=== PATIENT | male | born 1950 | race Caucasian/White ===

== ENCOUNTER 2018-11-23 14:39 | Outpatient (CLI) | payer BC, MEDICARE ==
[2018-11-23 15:13] LABS: Hemoglobin 12.4 g/dL (14.0-18.0); Mean Corpuscular HGB CONC 32.2 g/dL (32.0-36.0); Mean Corpuscular Hemoglobin 29.7 pg (27.0-31.0); Mean Corpuscular Volume 92.4 fL (78.0-98.0); Mean Platelet Volume 7.8 fL (7.4-10.4); Platelet Count 306 thou/uL (130-400); RBC Distribution Width 12.8 % (11.5-14.5); Red Blood Cell (RBC) Count 4.18 mill/uL (4.70-6.10); White Blood Cell (WBC) Count 7.3 thou/uL (4.8-10.8)
[2018-11-23 15:20] LABS: INR-International Normal Ratio 1.2; PTT 29.1 SEC (22.9-36.1); Prothrombin Time 15.2 SEC (12.0-14.7)
[2018-11-23 15:35] LABS: Anion Gap 11 mmol/L (10-20); BUN (Urea Nitrogen) 22 mg/dL (8.4-25.7); Calc. Creatinine Clearance 0 mL/min (70-130); Calcium 9.1 mg/dL (7.8-10.44); Carbon Dioxide 26 mmol/L (23-31); Chloride 107 mmol/L (98-107); Estimated GFR-MDRD 62; Glucose 124 mg/dL (80-115); Potassium 3.9 mmol/L (3.5-5.1); Sodium 140 mmol/L (136-145)
== END 2018-11-23 14:40 | disposition home or self-care (01) ==
LOC: LABBT 14:39
PROVIDERS: ATTEND Internal Medicine Cardiovascular Disease
DX: Z01.812 Encounter for preprocedural laboratory examination (principal); I48.91 Unspecified atrial fibrillation
CPT/HCPCS: 80048; 85027; 85610; 85730

== ENCOUNTER 2018-12-07 09:05 | Observation (INO) | payer BC, MEDICARE ==
[2018-11-23 15:00] VITALS: BMI 33.2
[2018-12-07] MEDS ORDERED: Heparin 10,000 UNITS/1 ML VIAL ONE ×2 (10:45→10:53)
[2018-12-07] MEDS ORDERED: Isoproterenol 0.2 MG/1 ML AMP ONE (10:46)
[2018-12-07] MEDS ORDERED: Phenylephrine HCL 10 MG/ML VIAL ONE (10:53)
[2018-12-07] MEDS ORDERED: Fentanyl 100 MCG/2 ML VIAL ONE (10:54)
[2018-12-07] MEDS ORDERED: PROPOFOL 200 MG/20 ML VIAL ONE (16:10)
[2018-12-07] MEDS ORDERED: Rocuronium Bromide 10 MG/ML (10ML VIAL) ONE (16:10)
[2018-12-07] MEDS ORDERED: PHENYLEPHRINE-NS 100 MCG/ML 10 ML SYRINGE ONE (16:10)
[2018-12-07] MEDS ORDERED: Glycopyrrolate 0.2 MG/ML 5 ML SYRINGE ONE (16:10)
[2018-12-07] MEDS ORDERED: Ondansetron PF 4 MG/2 ML Vial ONE (16:10)
--- NOTE | 2018-12-07 20:30 | OP ---
DATE OF PROCEDURE: 12/07/2018 PROCEDURES PERFORMED: Comprehensive electrophysiology testing with 3-dimensional mapping and ablation of atrial fibrillation and typical and atypical flutter. CLINICAL INDICATION: Previous persistent atrial fibrillation status post ablation and Amulet placement. ASA CLASSIFICATION: III. ANESTHESIA: Total IV anesthesia per Anesthesiology. ADDITIONAL CARDIAC MEDICATIONS: Isoproterenol 10 mcg/minute infusion for 5 minutes. ACUTE COMPLICATIONS: None TOTAL HEPARIN GIVEN: 19,000 units. TOTAL PROTAMINE GIVEN: 40 mg. METHODS: After informed consent was obtained, the patient was taken to the EP lab in a fasting state. Both groins were prepped and draped. Using ultrasound guidance, the femoral veins were accessed, and an 11-Barbadian and an 8-Barbadian sheaths were placed in the left groin, two 8-Barbadian sheaths were placed in the right groin. All 8-Barbadian sheaths were replaced by long sheaths for catheter stability. A 10-Barbadian echo probe was placed in the left groin and advanced to the right atrium and the right ventricle for imaging. A circular and ablation catheter was placed in the right groin and advanced toward the right atrium. A 3D map was obtained at the right atrium and the coronary sinus. A 20-pole catheter was placed in left groin and advanced toward the coronary sinus, the proximal end was in the cy terminalis. The patient was then anticoagulated. Transseptal catheterization was performed on 2 occasions. A 3D map was obtained in the left atrium. A temperature probe was placed in the esophagus for monitoring of temperature. This was co-located with a sensor catheter. The patient had evidence of reconnection of the left inferior pulmonary vein, which was easily re-isolated. There was isolation of the appendage, which was completely closed per Ammicaelat previously. Upon re-isolation of the left inferior vein, the patient was in A-flutter, which mapped to the right-sided cavotricuspid isthmus. This was ablated, terminating the arrhythmia. On isoproterenol, the patient had an atrial tachycardia arising from the SVC, which was also isolated. After the final ablation, there was no further inducible arrhythmias. RESULTS: 1. Baseline intervals: HV interval 59 milliseconds. 2. Atrial function: The patient was in a clockwise atrial flutter, which was ablated to the posterior right atrium. The left inferior pulmonary vein was also re-isolated as described in the method section. On isoproterenol, the patient had an atrial tachycardia arising from the superior vena cava, which was isolated. 3. Ablation details. A total of 7 minutes and 50 seconds of RF were delivered using a Biosense Kothari open irrigated ablation catheter. IMPRESSION: Successful re-isolation of left inferior pulmonary vein with ablation of cavotricuspid isthmus flutter and isolation of the SVC. RECOMMENDATIONS: Oral anticoagulation for 4 weeks (the patient has an intact Amulet device). Job ID: [id number]
[2018-12-07] MEDS: Atenolol 25 MG TAB PO SCH (21:01)
[2018-12-08] MEDS ORDERED: Levothyroxine Sodium 100 MCG TAB PO SCH (06:00)
--- NOTE | 2018-12-08 07:26 | EKG ---
Test Reason : POST ABLATIONM Blood Pressure : / mmHG Vent. Rate : 058 BPM Atrial Rate : 058 BPM P-R Int : 282 ms QRS Dur : 146 ms QT Int : 494 ms P-R-T Axes : 074 -48 082 degrees QTc Int : 484 ms Sinus bradycardia with 1st degree A-V block Left axis deviation Right bundle branch block (RBBB and left anterior fascicular block) T wave abnormality, consider lateral ischemia Abnormal ECG No previous ECGs available Confirmed by SHAAN PIERRE ([id number]) on 12/08/2018 7:26:33 AM Referred By: REMI Confirmed By:SHAAN PIERRE
[2018-12-08] MEDS: Atenolol 25 MG TAB PO SCH (07:34)
[2018-12-08] MEDS ORDERED: Aspirin 81 mg Enteric Coated Tablet PO SCH (09:00)
[2018-12-08] MEDS ORDERED: Amlodipine 5 MG TAB PO SCH (09:00)
[2018-12-08 11:51] VITALS: BP 128/70; TEMP 97.5
--- NOTE | 2018-12-08 12:54 | DIS ---
DATE OF ADMISSION: 12/07/2018 DATE OF DISCHARGE: 12/08/2018 DIAGNOSES: Atrial flutter, atrial fibrillation. PROCEDURES PERFORMED: Comprehensive electrophysiology testing with 3D mapping and ablation of atrial fibrillation in addition to typical and atypical flutter. COMPLICATIONS: None. TOTAL ABLATION TIME: 7 minutes 50 seconds. SUBJECTIVE: Mr. Desai is a pleasant 68-year-old gentleman, who underwent his initial ablation for atrial fibrillation in 2016. Since that time, he has had occasional episodes with atrial flutter, which had been increasingly frequent and moderately symptomatic with. He has inclusion of Amulet and therefore had not been on anticoagulation prior to ablation. He underwent EP study with ablation with Dr. Recinos on 12/07/2018. During this ablation, he required re-isolation of the left inferior pulmonary vein in addition to a cavotricuspid isthmus flutter ablation and isolation of the SVC. Total ablation time was 7 minutes 50 seconds. The patient has tolerated and has been doing well in his recovery and there were no complications. REVIEW OF SYSTEMS: An 8-point review of systems was conducted and is negative. The patient denies heart racing, palpitations, chest pain, pressure, syncope, near syncope, stroke, stroke-like symptoms, bleeding from the groin site, shortness of breath, orthopnea, nausea, vomiting, diarrhea, burning, or difficulty urinating. He expresses he is eager to go home. OBJECTIVE: VITAL SIGNS: Temperature 97.5, pulse 63, blood pressure 128/70, respirations 20, oxygen is 94% on room air. GENERAL: The patient is alert and oriented. Speech is clear. Affect is appropriate. NEUROLOGIC: Grossly intact and nonfocal. NECK: Supple without jugular venous distention. HEART: Heart rate is regularly regular, but with occasional PACs. PMI is nondisplaced. LUNGS: Clear to auscultation bilaterally. ABDOMEN: Soft and nontender. Hepatojugular reflux is negative. EXTREMITIES: Warm and dry to touch without clubbing, cyanosis, or edema. Bilateral groin sites are stable without signs of bleeding, hematoma, or complications. DIAGNOSTIC DATA: EKG and telemetry suggest sinus rhythm with a moderate amount of premature atrial complexes. DISCHARGE INSTRUCTIONS: No lifting more than 7 pounds for 1 week. No soaking baths for 1 week. No driving for 2 days. Follow up with [facility] in 6 weeks. See postablation [facility] discharge instruction packet. Take medications as prescribed. He will require 12 weeks of anticoagulation post ablation and then may resume baby aspirin alone as he has Amulet in place. DISCHARGE MEDICATIONS: Resuming home medications of, 1. Levothyroxine sodium 200 mcg p.o. daily. 2. Atenolol 25 mg p.o. b.i.d. 3. Aspirin 81 mg p.o. daily. 4. Amlodipine 5 mg p.o. daily. New prescriptions were sent in for, 1. Carafate 1 g p.o. q.i.d. x2 weeks. 2. Protonix 40 mg p.o. daily x1 month. 3. Apixaban 5 mg p.o. b.i.d. x1 month. Job ID: [id number] [facility]
--- NOTE | 2018-12-10 14:07 | EKG ---
Test Reason : Blood Pressure : / mmHG Vent. Rate : 061 BPM Atrial Rate : 096 BPM P-R Int : 248 ms QRS Dur : 142 ms QT Int : 470 ms P-R-T Axes : 067 -50 057 degrees QTc Int : 473 ms Sinus rhythm with 1st degree A-V block with Supraventricular trigeminy Left axis deviation Right bundle branch block T wave abnormality, consider lateral ischemia Abnormal ECG When compared with ECG of 07-DEC-2018 14:43, No significant change was found Confirmed by SHAAN PIERRE ([id number]) on 12/10/2018 2:06:43 PM Referred By: REMI Confirmed By:SHAAN PIERRE
== END 2018-12-08 13:41 | disposition home or self-care (01) ==
LOC: CCL 09:05 → 2SW 14:34
PROVIDERS: ADMIT Internal Medicine Cardiovascular Disease; ATTEND Internal Medicine Cardiovascular Disease
PROC: 02583ZZ Destruction of Conduction Mechanism, Percutaneous Approach (ICD-10-PCS; principal; 2018-12-07)
PROC: 02K83ZZ Map Conduction Mechanism, Percutaneous Approach (ICD-10-PCS; 2018-12-07)
PROC: 4A023FZ Measurement of Cardiac Rhythm, Percutaneous Approach (ICD-10-PCS; 2018-12-07)
PROC: 4A0234Z Measurement of Cardiac Electrical Activity, Percutaneous Approach (ICD-10-PCS; 2018-12-07)
DX: I48.1 Persistent atrial fibrillation (principal); I48.3 Typical atrial flutter; I48.4 Atypical atrial flutter; E89.0 Postprocedural hypothyroidism; I10 Essential (primary) hypertension; I48.91 Unspecified atrial fibrillation; G47.30 Sleep apnea, unspecified; E78.5 Hyperlipidemia, unspecified; Z87.891 Personal history of nicotine dependence; Z99.89 Dependence on other enabling machines and devices; Z79.82 Long term (current) use of aspirin; Z79.899 Other long term (current) drug therapy
CPT/HCPCS: 76942; 93005; 93010; 93613; 93623; 93656; 93657; 93662; C1731; C1732; C1759; C1760; C1769; G0378; J1644; J2370; J2405; J2704; J3010

== ENCOUNTER 2019-01-24 14:44 | Outpatient (CLI) | payer BC, MEDICARE ==
[2019-01-24 15:26] LABS: Hemoglobin 11.7 g/dL (14.0-18.0); Mean Corpuscular HGB CONC 32.3 g/dL (32.0-36.0); Mean Corpuscular Hemoglobin 28.7 pg (27.0-31.0); Mean Corpuscular Volume 88.7 fL (78.0-98.0); Mean Platelet Volume 7.5 fL (7.4-10.4); Platelet Count 299 thou/uL (130-400); RBC Distribution Width 12.9 % (11.5-14.5); Red Blood Cell (RBC) Count 4.07 mill/uL (4.70-6.10); White Blood Cell (WBC) Count 7.1 thou/uL (4.8-10.8)
[2019-01-24 15:33] LABS: INR-International Normal Ratio 1.1; Prothrombin Time 14.2 SEC (12.0-14.7)
[2019-01-24 15:49] LABS: Anion Gap 13 mmol/L (10-20); BUN (Urea Nitrogen) 23 mg/dL (8.4-25.7); Calc. Creatinine Clearance 0 mL/min (70-130); Calcium 9.2 mg/dL (7.8-10.44); Carbon Dioxide 25 mmol/L (23-31); Chloride 107 mmol/L (98-107); Estimated GFR-MDRD 61; Glucose 108 mg/dL (80-115); Sodium 141 mmol/L (136-145)
--- NOTE | 2019-01-26 21:20 | EKG ---
Test Reason : Blood Pressure : / mmHG Vent. Rate : 067 BPM Atrial Rate : 174 BPM P-R Int : 000 ms QRS Dur : 150 ms QT Int : 444 ms P-R-T Axes : 000 -64 076 degrees QTc Int : 469 ms Undetermined rhythm Second degree AV block I, Wenkebach Right bundle branch block Left anterior fascicular block Bifascicular block Left ventricular hypertrophy with QRS widening and repolarization abnormality Abnormal ECG When compared with ECG of 08-DEC-2018 07:04, Current undetermined rhythm precludes rhythm comparison, needs review T wave inversion now evident in Anterior leads Confirmed by Areli MALONE ([id number]) on 01/26/2019 9:20:01 PM Referred By: [facility] Confirmed By:Areli MALONE
== END 2019-01-24 14:45 | disposition home or self-care (01) ==
LOC: LABBT 14:44
PROVIDERS: ATTEND Internal Medicine Cardiovascular Disease
DX: Z01.818 Encounter for other preprocedural examination (principal); I48.91 Unspecified atrial fibrillation
CPT/HCPCS: 80048; 85027; 85610; 85730; 93005; 93010

== ENCOUNTER 2019-01-26 10:51 | Day surgery (SDC) | payer BC, MEDICARE ==
[2019-01-24 14:45] VITALS: BMI 32.5
[~2019-01-26 10:51] MED LIST: Iopamidol 370 76% 50 ML VIAL FS ONE; PROPOFOL 200 MG/20 ML VIAL ONE
[2019-01-26] MEDS ORDERED: PROPOFOL 20 ML ONE (12:13)
[2019-01-26] MEDS ORDERED: Midazolam HCl 2 mg/2 ml Vial ONE (16:01)
[2019-01-26] MEDS ORDERED: Fentanyl 100 MCG/2 ML VIAL ONE (16:01)
--- NOTE | 2019-01-26 17:12 | RAD ---
XR Chest 1 View Portable HISTORY: Pacemaker insertion COMPARISON: 12/15/2016 FINDINGS: The heart size is at upper limits of normal. The lungs are well expanded without focal area s of consolidation, pneumothorax or pleural effusions. There is been interval placement of a left-sided pacer device with bipolar leads in the right atrium and the right ventricle. IMPRESSION: No radiographic evidence of acute cardiopulmonary process.
--- NOTE | 2019-01-26 20:43 | OP ---
DATE OF PROCEDURE: 01/26/2019 REASON FOR PROCEDURE: Mr. Desai is a 68-year-old man with prior history of recurrent atrial arrhythmias, most recent ablation in November, here with recurrent arrhythmia. He has Amulet device in place with adequate sealing. DESCRIPTION OF PROCEDURE: The patient received propofol by Anesthesia specialist. After adequate level of sedation achieved, a synchronized 70-joule shock promptly converted the patient back to sinus rhythm. CONCLUSION: 1. Successful cardioversion. 2. Marked sinus bradycardia on return rhythm likely will need reduction of his beta-ester therapy. Job ID: [id number]
--- NOTE | 2019-01-26 21:30 | EKG ---
Test Reason : S/P AFLUT ABLATION Blood Pressure : / mmHG Vent. Rate : 039 BPM Atrial Rate : 039 BPM P-R Int : 000 ms QRS Dur : 144 ms QT Int : 532 ms P-R-T Axes : 082 -41 022 degrees QTc Int : 428 ms Marked sinus bradycardia with 1st degree A-V block with Premature atrial complexes in a pattern of bi geminy Left axis deviation Right bundle branch block Abnormal ECG Confirmed by Areli MALONE ([id number]) on 01/26/2019 9:30:31 PM Referred By: [facility] Confirmed By:Areli MALONE
--- NOTE | 2019-01-26 21:30 | EKG ---
Test Reason : PREOP Blood Pressure : / mmHG Vent. Rate : 054 BPM Atrial Rate : 054 BPM P-R Int : 000 ms QRS Dur : 146 ms QT Int : 496 ms P-R-T Axes : 000 -46 049 degrees QTc Int : 470 ms Sinus bradycardia with Premature atrial complexes with Abberant conduction Left axis deviation Right bundle branch block T wave abnormality, consider lateral ischemia Abnormal ECG When compared with ECG of 24-JAN-2019 15:11, (Unconfirmed) Previous ECG has undetermined rhythm, needs review T wave inversion no longer evident in Anterior leads Confirmed by Areli MALONE ([id number]) on 01/26/2019 9:30:19 PM Referred By: [facility] Confirmed By:Areli MALONE
== END 2019-01-26 20:00 | disposition home or self-care (01) ==
LOC: CCL 10:51
PROVIDERS: ATTEND Internal Medicine Cardiovascular Disease
PROC: 02HL3JZ Insertion of Pacemaker Lead into Left Ventricle, Percutaneous Approach (ICD-10-PCS; principal; 2019-01-26)
PROC: 0JH606Z Insertion of Pacemaker, Dual Chamber into Chest Subcutaneous Tissue and Fascia, Open Approach (ICD-10-PCS; principal; 2019-01-26)
PROC: 5A2204Z Restoration of Cardiac Rhythm, Single (ICD-10-PCS; principal; 2019-01-26)
DX: I48.1 Persistent atrial fibrillation (principal); I49.9 Cardiac arrhythmia, unspecified; I10 Essential (primary) hypertension; E78.5 Hyperlipidemia, unspecified; E89.0 Postprocedural hypothyroidism; Z79.82 Long term (current) use of aspirin; Z79.899 Other long term (current) drug therapy
CPT/HCPCS: 33208; 36005; 71045; 75820; 92960; 93005; 93010; 99152; 99153; J0690; J2250; J2704; J3010; J3490; Q9967

== ENCOUNTER 2019-02-26 11:34 | Inpatient (IN) | payer BC, MEDICARE ==
[2019-02-26 12:06] LABS: #Basophils 0.1 thou/uL (0.0-0.2); #Eosinphils 0.3 thou/uL (0.0-0.7); #Lymphocytes 2.3 thou/uL (1.20-3.40); #Monocytes 1.1 thou/uL (0.11-0.59); #Neutrophils 3.9 thou/uL (1.40-6.50); %Basophils 0.7 % (0.0-1.0); %Eosinophils 3.6 % (0.0-10.0); %Monocytes 14.6 % (0.0-10.0); %Neutrophils 51.1 % (42.0-75.0); Hemoglobin 11.4 g/dL (14.0-18.0); Mean Corpuscular HGB CONC 31.3 g/dL (32.0-36.0); Mean Corpuscular Volume 86.2 fL (78.0-98.0); Mean Platelet Volume 7.4 fL (7.4-10.4); Platelet Count 277 thou/uL (130-400); RBC Distribution Width 13.3 % (11.5-14.5); Red Blood Cell (RBC) Count 4.21 mill/uL (4.70-6.10); White Blood Cell (WBC) Count 7.6 thou/uL (4.8-10.8)
--- NOTE | 2019-02-26 12:23 | RAD ---
2 VIEWS CHEST: Date: 02/26/19 HISTORY: Dyspnea. COMPARISON: 01/26/19. FINDINGS: Mild cardiomegaly with mild vascular congestion. Pacemaker leads are noted. No infiltrate or effusion . IMPRESSION: Mild cardiomegaly with mild vascular congestion. POS: [facility]
[2019-02-26 12:30] LABS: ALT (SGPT) 17 U/L (8-55); AST (SGOT) 20 U/L (5-34); Albumin 4.1 g/dL (3.4-4.8); Alkaline Phosphatase 110 U/L (40-150); Anion Gap 12 mmol/L (10-20); BUN (Urea Nitrogen) 16 mg/dL (8.4-25.7); CK (CPK) 95 U/L (30-200); Calc. Creatinine Clearance 0 mL/min (70-130); Calcium 9.6 mg/dL (7.8-10.44); Carbon Dioxide 29 mmol/L (23-31); Chloride 104 mmol/L (98-107); Estimated GFR-MDRD 53; Globulin 3.1 g/dL (2.4-3.5); Glucose 112 mg/dL (80-115); Potassium 4.5 mmol/L (3.5-5.1); Protein, Total 7.2 g/dL (5.8-8.1); Sodium 140 mmol/L (136-145)
[2019-02-26] MEDS ORDERED: ISOVUE-370 76%-LOCM 1 ML ONE (13:45)
--- NOTE | 2019-02-26 16:19 | CT ---
CT arteriogram chest with IV contrast and 3-D imaging HISTORY: Dyspnea. Elevated d-dimer. FINDINGS: There is good contrast opacification of the pulmonary arteries. Limited contrast has reache d the aorta at the time of imaging. The descending aorta measures up to 5.5 cm AP diameter. No luminal filling defects. Nonspecific lymph nodes throughout the mediastinum. Minimal atelectasis at t he lung bases. No evidence of pneumothorax. No pleural fluid. IMPRESSION: No CT evidence of pulmonary embolus. Aneurysmal dilatation of the ascending aorta up to 5.5 cm. No evidence of dissection.
[2019-02-26 18:03] LABS: Troponin I Less than 0.010 ng/mL (< 0.028)
[2019-02-26] MEDS ORDERED: Sodium Chloride 0.9% 1,000 ML IV SCH (18:52)
[2019-02-26 19:47] LABS: Troponin I Less than 0.010 ng/mL (< 0.028)
[2019-02-26 20:22] VITALS: BMI 34.1
[2019-02-26] MEDS ORDERED: Acetaminophen 325 MG TAB PO PRN (21:44)
[2019-02-26] MEDS ORDERED: Ondansetron ODT 4 MG TAB PO PRN (21:44)
[2019-02-26] MEDS ORDERED: Furosemide 20 MG/2 ML VIAL SLOW IVP SCH (22:00)
[2019-02-26] MEDS ORDERED: Flecainide 50 MG TAB PO SCH (22:00)
[2019-02-26] MEDS ORDERED: Atenolol 25 MG TAB PO SCH (22:00)
--- NOTE | 2019-02-27 02:51 | HP ---
PRIMARY CARE PHYSICIAN: Tristan Aranda MD TIME OF EVALUATION: 6:30 p.m. CHIEF COMPLAINT: Shortness of breath. HISTORY OF PRESENT ILLNESS: Mr. Desai is a very pleasant 68-year-old male with past medical history significant for paroxysmal atrial fibrillation, status post multiple ablations and Amulet exclusion device of his left atrial appendage , sick sinus syndrome, status post recent pacemaker implantation, January 26, 2019, hypertension, and history of intracranial hemorrhage, who presented to the hospital with complaints of a 2-day history of some intermittent shortness of breath. The patient states that his shortness of breath has come and gone. He denies any orthopnea. He denies any cough, fever, or chills. The patient reports a sensation as if "something just isn't right." He has noticed his shortness of breath both with exertion and with rest. The patient lives in [place] with his , and when they were driving to town to eat breakfast, the patient decided that he did not feel up to going to a restaurant and drove himself to the emergency department for further workup and evaluation. On arrival to the ED, the patient's blood pressure was 152/97, pulse was 70, respirations were 18 and the patient was saturating 99% on room air. His initial troponin was negative. D-dimer was elevated at 0.45, and so CTA was performed, which showed no evidence of pulmonary embolism, but did incidentally capture an ascending thoracic aneurysm measuring 5.5 cm in diameter, newly diagnosed. His EKG showed an atrial paced rhythm with a prolonged AV delay. BNP was 118 and chest x-ray showed mild vascular congestion. REVIEW OF SYSTEMS: A 12-point review of systems performed and is negative except that stated above. ALLERGIES: NO KNOWN DRUG ALLERGIES. HOME MEDICATIONS: 1. Atenolol 25 mg p.o. b.i.d. 2. Flecainide 50 mg one p.o. b.i.d. 3. Levothyroxine 200 mcg daily. 4. Amlodipine 5 mg daily. PAST MEDICAL HISTORY: Hypertension, hypothyroidism, history of hemorrhagic CVA, which presented with vision loss, no residual deficits, hypertension, paroxysmal atrial fibrillation, status post multiple ablations, sick sinus syndrome, status post pacemaker implantation. PAST SURGICAL HISTORY: Both atrial fibrillation and atrial flutter ablations in the past with Dr. Recinos and Dr. You, most recently November 2018, the patient also had an Amulet exclusion device placed by Dr. Recinos in left atrial appendage, pacemaker implant, January 26, 2019. SOCIAL HISTORY: The patient is and lives with his in [place]. He has a remote smoking history, but quit 40 years ago. He does drink socially on occasion. No illicit drug use. FAMILY HISTORY: Noncontributory. PHYSICAL EXAMINATION: VITAL SIGNS: Blood pressure 121/74, pulse 77, O2 saturation is 93% on room air, respirations 16, temperature 98.6. GENERAL: This patient is a well-appearing middle-aged male, resting comfortably in bed, in no acute distress. HEENT: Head is atraumatic and normocephalic. Mucous membranes are moist. NECK: Supple. No obvious JVD. Trachea is midline. CV: S1 and S2. Regular rate and rhythm. LUNGS: Regular respiratory rate and pattern, overall clear to auscultation bilaterally. ABDOMEN: Positive bowel sounds. Mildly obese, nontender. EXTREMITIES: +1 edema bilaterally. Both lower extremities are warm and well perfused. NEUROLOGIC: Cranial nerves 2 through 12 are grossly intact. The patient is nonfocal. LABORATORY DATA: WBC 7.6, hemoglobin 11.4, hematocrit 36.3, platelet count is 277. D-dimer was 0.45. Sodium 140, potassium 4.5, anion gap 12, BUN 16, creatinine 1.34, bilirubin 1. AST, ALT, alkaline phosphatase all within normal limits. BNP was 119. Troponin negative x2. ASSESSMENT: 1. Shortness of breath-questionable etiology, mild volume overload as evidenced by mild pulmonary vascular congestion and mildly elevated BNP versus pacemaker related, such as pacemaker syndrome. 2. Newly diagnosed ascending aortic aneurysm measuring 5.5 cm. 3. Paroxysmal atrial fibrillation/atrial flutter, status post multiple ablations and Amulet occlusion device of left atrial appendage, currently in atrially paced rhythm, CHADS-VASc equals 4. 4. Sick sinus syndrome, status post recent dual-chamber [employer]tronic pacemaker implant last month with Dr. You. 5. Hypertension. 6. Hypothyroidism. 7. Mild renal insufficiency, although not acute on chronic as creatinine is not elevated, 0.3, above baseline. PLAN: CV surgery has been consulted in light of newly diagnosed ascending aortic aneurysm of 5.5 cm, which is at the threshold for repair. Regarding his shortness of breath, I will give a small one time dose of IV Lasix and monitor the patient 's symptoms. This case was discussed in detail with Dr. Bean, who has advised for EP consult with Dr. You. The patient may benefit from optimization of his pacemaker settings. Cardiology consult as well. He has had no recent stress test or cardiology followup in quite some time. The patient reports he used to see Dr. Thrasher. GI prophylaxis and DVT prophylaxis with SCDs for now. We will obtain 2D echocardiogram. Further recommendations based on hospital course. Job ID: [id number] [facility]
[2019-02-27 05:11] LABS: Anion Gap 10 mmol/L (10-20); BUN (Urea Nitrogen) 18 mg/dL (8.4-25.7); Calc. Creatinine Clearance 95 mL/min (70-130); Carbon Dioxide 29 mmol/L (23-31); Chloride 104 mmol/L (98-107); Estimated GFR-MDRD 67; Glucose 96 mg/dL (80-115); Potassium 3.9 mmol/L (3.5-5.1); Sodium 139 mmol/L (136-145)
[2019-02-27] MEDS: Levothyroxine Sodium 100 MCG TAB PO SCH (05:50)
[2019-02-27] MEDS: Amlodipine 5 MG TAB PO SCH (09:10)
[2019-02-27] MEDS: Aspirin 81 mg Enteric Coated Tablet PO SCH (09:11)
[2019-02-27] MEDS: Famotidine 20 MG TAB PO SCH ×2 (09:11→21:20)
[2019-02-27] MEDS: Flecainide 50 MG TAB PO SCH ×2 (09:12→21:21)
[2019-02-27] MEDS: Atenolol 25 MG TAB PO SCH ×2 (09:12→21:21)
[2019-02-27] MEDS ORDERED: Lidocaine 1% (PF) 30 ML VIAL ONE (11:01)
[2019-02-27] MEDS ORDERED: Fentanyl 100 MCG/2 ML VIAL ONE (11:31)
[2019-02-27] MEDS ORDERED: Midazolam HCl 2 mg/2 ml Vial ONE (11:32)
[2019-02-27] MEDS ORDERED: Sodium Chloride 0.9% 200 ML IV PRN (12:03)
[2019-02-27] MEDS ORDERED: Acetaminophen/Codeine 30-300mg Tablet PO PRN (12:03)
[2019-02-27] MEDS ORDERED: Sodium Chloride 0.9% 1,000 ML IV SCH (12:15)
--- NOTE | 2019-02-27 13:14 | CON ---
DATE OF CONSULTATION: 02/27/2019 Cardiology Consultation REASON FOR CONSULTATION: Shortness of breath and dilated aortic root. HISTORY OF PRESENT ILLNESS: Mr. Desai is a pleasant 68-year-old white gentleman, who comes to the hospital for shortness of breath. He lives in [place] and [facility]. He was not feeling that well to the point that he decided to come into the hospital for this. For the last two days, he has been having intermittent shortness of breath. It just comes and goes, sometimes at rest. Sometimes with exertion and it just goes away on its own. He had a pacemaker placed recently on January 26 and has a history of paroxysmal atrial fibrillation in a flutter. Has had several ablations in the past. He had a cardioversion as well and had a lot of bradycardia afterwards, so eventually had a pacemaker placed. Currently, he is denying any chest pain, tightness, or pressure. No shortness of breath. On his ER evaluation, a CT per PE protocol was performed and showed no evidence of pulmonary embolus. However, he did have an ascending aortic aneurysm measuring at 5.5 cm in diameter. PAST MEDICAL HISTORY: 1. Hypertension. 2. Hypothyroidism. 3. Hemorrhagic CVA in the past. 4. Paroxysmal atrial fibrillation, status post multiple ablations. 5. Sick sinus syndrome, status post pacemaker placement. SURGICAL HISTORY: 1. Atrial fibrillation and atrial flutter ablations by Dr. Recinos and Dr. Simpson in the past. 2. Pacemaker placement January 26 [address] You. 3. Amulet Amplatzer occlusion device for the left atrial appendage placed by Dr. Recinos recently. OUTPATIENT MEDICATIONS: Include 1. Atenolol 25 mg b.i.d. 2. Flecainide 50 mg b.i.d. 3. Levothyroxine 200 mcg a day. 4. Amlodipine 5 mg a day. ALLERGIES: NO KNOWN DRUG ALLERGIES. SOCIAL HISTORY: Remote history of tobacco use, quit 40 years ago. Social alcohol use. No drug use. FAMILY HISTORY: Sister with atrial fibrillation and father of malignancy. REVIEW OF SYSTEMS: A 12-point review of systems was done and was all negative unless stated in the history of present illness. PHYSICAL EXAMINATION: VITAL SIGNS: Temperature 98.3, pulse 72, respiratory rate 16, sat 96% on room air, and blood pressure 138/80. GENERAL: Awake, alert, and oriented x3. No distress. HEENT: Normocephalic atraumatic. NECK: Supple. LUNGS: Clear. CARDIOVASCULAR: S1, S2. No S3 or S4. No murmurs. No rubs. ABDOMEN: Soft. Positive bowel sounds. EXTREMITIES: No edema. SKIN: Warm and dry. LABORATORY DATA: Laboratory work was reviewed. Hemoglobin 11.4, hematocrit 36, platelet count 277. Coags were D-dimer was a little bit high. Chemistry was unremarkable except for a creatinine of 1.34, but down to 1.1. Troponin is negative x3. BNP is 118. Hemoglobin trend has been similar to this. The last hemoglobin was 11.7, now it is 12. EKG was reviewed. Pacemaker interrogation was reviewed. He has had several episodes of atrial fibrillation and some episodes of what appears to be atrial flutter with 2:[address] of the chest was reviewed. ASSESSMENT AND PLAN: 1. Paroxysmal atrial fibrillation. 2. Shortness of breath, episodic, likely related to runs of atrial flutter. 3. Ascending aortic aneurysm measuring 5.5 cm. PLAN: 1. As far as the aneurysm is concerned, he is at the point where it is going to need to be replaced. We spoke about doing this and he agrees to proceed with first step in this process would be doing a heart catheterization to evaluate for coronary artery disease. He agrees to proceed on this as well. We spoke about the risks and benefits of the procedure. Risks included, but not limited to stroke, NH, , bleeding, need for blood transfusion, limb loss, organ loss. The patient understands, verbalized understanding of this, and agrees to proceed. 2. We will do heart catheterization to see if there is anything other than just a root replacement needed. He will have to go to [place] for this. 3. Further recommendations per results of coronary angiogram. Echocardiogram pending. Job ID: [id number]
--- NOTE | 2019-02-27 17:17 | PDOC.PN ---
- Subjective Encounter Start Date: 02/27/19 (f/u aneurysm) Encounter Start Time: 17:14 Subjective: Pt without complaints. Denies any shortness of breath, n/v/abd pain -: denies any other concerns. - Objective Resuscitation Status - Order Detail: 02/26/19 21:44 Resuscitation Status Routine Co-Sign Provider: Resuscitation Status: FULL: Full Resuscitation Vital Signs & Weight: Vital Signs (12 hours) Temp Pulse Resp BP BP Pulse Ox 02/27/19 15:32 97.8 F 70 18 117/69 94 L 02/27/19 12:20 71 18 134/80 94 L 02/27/19 09:12 72 02/27/19 09:10 72 02/27/19 08:00 98.3 F 72 16 138/80 96 Weight Weight 227 lb 8 oz I&O: 02/26/19 02/27/19 02/28/19 06:59 06:59 06:59 Intake Total 750 300 Output Total 1650 675 Balance -900 -375 Result Diagrams: 02/26/19 11:57 02/27/19 04:12 EKG Reviewed by me: Yes (tele - paced 70-80's) Phys Exam - Physical Examination Constitutional: NAD Respiratory: no wheezing, no rales, no rhonchi, clear to auscultation bilateral Cardiovascular: RRR, no significant murmur Gastrointestinal: soft, non-tender, no distention, positive bowel sounds Musculoskeletal: no edema Neurological: non-focal, moves all 4 limbs Psychiatric: normal affect Dx/Plan (1) Thoracic aortic aneurysm Code(s): I71.2 - THORACIC AORTIC ANEURYSM, WITHOUT RUPTURE Status: Acute (2) Anemia Code(s): D64.9 - ANEMIA, UNSPECIFIED Status: Chronic Qualifiers: Anemia type: unspecified type Qualified Code(s): D64.9 - Anemia, unspecified (3) Atrial fibrillation and flutter Code(s): I48.91 - UNSPECIFIED ATRIAL FIBRILLATION; I48.92 - UNSPECIFIED ATRIAL FLUTTER Status: Chronic - Plan * Pt s/p cath today - d/w Dr. Trejo and CT angiogram of the aorta is needed tomorrow for further characterization. Will hydrate with IVF overnight -use lasix prn for volume overload. Pt has received a contrast study both yesterday and today, and needs an additional one tomorrow. * * continue IVF as ordered * f/u with Dr. You as directed for a fib * continue home meds as ordered. * * dvt prophy - ambulatory * gi prophy - not indicated * code status - full * * reviewed plan of care with patient, no questions or further needs at end of eval. Anticipate discharge when cleared by Dr. Trejo/Cardiology
[2019-02-27] MEDS: Sodium Chloride 0.9% 1,000 ML IV SCH ×2 (17:46→23:13)
--- NOTE | 2019-02-27 22:20 | CON ---
DATE OF CONSULTATION: 02/27/2019 HISTORY OF PRESENT ILLNESS: I am seeing Mr. 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 His problems are; 1. Continuous fatigue and tiredness. 2. Recurrent atrial fibrillation/flutter. a. History of cardioversion in January 2019 with subsequent bradyarrhythmia, prompting a dual-chamber pacemaker implantation. b. Prior history of atrial fibrillation ablation most recent on December 07, 2018, this recurrence is despite. c. Flecainide use for suppression. 3. Status post left appendage closure with OKSANA from 12/12/2018 shows complete occlusion of an appendage with 60% mild LVEF, mild to moderate MR, and moderate TR. 4. History of hypertension. 5. Left heart catheterization demonstrates normal LVEF 70%, sjwj-cm-neberpst coronary artery disease on medical management and ascending aortic root aneurysm is seen. ALLERGIES: NONE NOTED. MEDICATIONS: At home included; 1. Amlodipine. 2. Levothyroxine. 3. Aspirin. 4. Flecainide 50 mg twice a day. SUBJECTIVE: Mr. Desai is here for progressive dyspnea. He has no fever, chills, or cough, and denies orthopnea at this time. He was noticing some shortness of breath with exertion and with rest. In the ER, he was evaluated. CTA was negative for pulmonary embolism. Ascending aortic aneurysm was noted at 5.5 cm. Pacemaker function is adequate as per interrogation with atrial pacing with prolonged AV delays noted. BNP was low at 118, but mild vascular congestion was seen. He was diuresed since and breathing better. He has no chest pain. No fever, chills, or cough. No stroke-like symptoms or neurological deficits. REVIEW OF SYSTEMS: Rest of 12-point review of system otherwise unremarkable. PAST MEDICAL HISTORY: As above. SOCIAL HISTORY: The patient denies smoking, EtOH, or drug abuse. FAMILY HISTORY: Noncontributory. PHYSICAL EXAMINATION: VITAL SIGNS: Blood pressure is 134/80, heart rate is 71, respiratory rate is 18, and temperature is 98.3 degrees Fahrenheit. GENERAL: Alert and oriented man, in no apparent distress. NECK: Supple. Jugular veins not distended. CHEST: Coarse without crackles. HEART: Sounds are regular to rate and rhythm. No murmur or gallop. Epicardial pacemaker site is healing adequately. ABDOMEN: Benign. Bowel sounds positive. EXTREMITIES: Lower extremities are without edema, clubbing, or cyanosis. Pulses are adequate. NEUROLOGIC: The patient is nonfocal. MUSCULOSKELETAL: Without joint swelling or deformity. SKIN: Without rash. DATABASE: EKG was reviewed revealing sinus rhythm with atrial pacing, prolonged AV conduction, but [place] QRS is seen with trifascicular block present. Pacemaker interrogation was reviewed revealing an adequate functioning dual-chamber Medtronic pacemaker with big enough life battery, adequate lead parameters are seen. Atrial arrhythmia episodes are noted. No fibrillation recently, but then has slow atrial flutter around 400 milliseconds is noted on February 19, although less than 1 minute in duration, self terminating. Atrial fibrillation episodes are reducing in frequency recently. ASSESSMENT AND PLAN: Mr. Desai is a pleasant 68-year-old man with prior history of recurrent atrial arrhythmias after redo ablation in November 2018. He also has adequately occluded left atrial appendage with Amulet device and recently has been cardioverted and has significant trifascicular block and bradycardia. He had a dual-chamber pacemaker implanted, which is functioning adequately and currently, he is in sinus rhythm on continued low-dose flecainide dose. His dyspnea possibly due to some mild fluid overload. Echocardiogram and cholangiogram does not account for any major abnormalities on that and he was incidentally found to have significant aortic aneurysm. Dr. Trejo is contemplating surgical repair. At this point, I find his arrhythmia is stable. His pacemaker is functioning adequately. Minor change in the programming will be made to allow for detection of any slower atrial arrhythmias and also we will turn atrial ATP therapies on hence the atrial lead is functioning good. I suspect some efficacy from atrial pacing therapies. For now, we will continue conservative management, otherwise, continue oral anticoagulation as well. Pacemaker interrogation and changes will be performed today. Thank you again for allowing me to participate in the care of this patient. Job ID: [id number]
[2019-02-28 04:57] LABS: Anion Gap 12 mmol/L (10-20); BUN (Urea Nitrogen) 14 mg/dL (8.4-25.7); Calc. Creatinine Clearance 109 mL/min (70-130); Calcium 8.9 mg/dL (7.8-10.44); Carbon Dioxide 25 mmol/L (23-31); Chloride 105 mmol/L (98-107); Estimated GFR-MDRD 78; Glucose 96 mg/dL (80-115); Potassium 4.2 mmol/L (3.5-5.1); Sodium 138 mmol/L (136-145)
[2019-02-28] MEDS: Levothyroxine Sodium 100 MCG TAB PO SCH (06:34)
[2019-02-28] MEDS: Famotidine 20 MG TAB PO SCH (09:15)
[2019-02-28] MEDS: Atenolol 25 MG TAB PO SCH (09:15)
[2019-02-28] MEDS: Aspirin 81 mg Enteric Coated Tablet PO SCH (09:15)
[2019-02-28] MEDS: Amlodipine 5 MG TAB PO SCH (09:15)
[2019-02-28] MEDS: Flecainide 50 MG TAB PO SCH (09:15)
[2019-02-28] MEDS: Sodium Chloride 0.9% 1,000 ML IV SCH (09:16)
--- NOTE | 2019-02-28 14:12 | CT ---
CT ANGIOGRAM CHEST WITH CONTRAST CTA ABDOMEN WITH CONTRAST 02/28/19 HISTORY: Evaluate aortic aneurysm. COMPARISON: CTA two days prior. TECHNIQUE: CT angiogram of the chest and abdomen performed after intravenous administration of contrast. 3D rend ering is provided. FINDINGS: The aortic size is as follows: Aortic valve: 2.9 cm. Sinuses of Valsalva: 4.4 cm. Sinotubular junction: 3.6 cm. Mid ascending thoracic aorta: 5 cm. Transverse aorta: 4 cm. Proximal descending thoracic aorta: 3.1 cm. Mid descending thoracic aorta: 2.9 cm. Diaphragmatic hiatus: 2.6 cm. The abdominal aorta is nonaneurysmal. Heart size is enlarged. No pericardial effusion. The pulmonary trunk is mildly enlarged measuring 3.5 cm. Lungs are clear. No pneumothorax. No effusions. Small fat containing supraumbilical ventral hernia. T he liver and spleen are unremarkable as well as the pancreas. No hydronephrosis. Adrenal glands unremarkable. The superior mesenteric artery and celiac trunk are patent. No thoracic spine compression fracture. No displaced rib fracture. No acute osseous abnormality. IMPRESSION: 1. Aneurysmal dilatation of the ascending aorta as described. No evidence for dissection. 2. Cardiomegaly. 3. Dilatation of pulmonary trunk suggesting pulmonary arterial hypertension. POS: HOME
[2019-02-28 15:50] VITALS: BP 126/78; TEMP 98.8
--- NOTE | 2019-02-28 16:10 | PRG ---
DATE OF SERVICE: 02/28/2019 SUBJECTIVE: Mr. Desai seems to be doing fair. No further arrhythmia episodes are seen. No palpitations, dizziness, or loss of consciousness. His dyspnea is improved with diuresis. He has recovered well from the heart catheterization. OBJECTIVE DATA: VITAL SIGNS: Blood pressure 122/78, heart rate 72, respiratory rate 16, temperature 98.8 degrees Fahrenheit. GENERAL: Alert and oriented man, in no apparent distress. NECK: Supple. Jugular veins not distended. CHEST: Coarse with crackles. HEART: Sounds are regular to rate and rhythm. No murmur or gallop. ABDOMEN: Benign. Bowel sounds positive. EXTREMITIES: Lower extremities without edema, clubbing, or cyanosis. Left epicardial pacemaker insertion site is well healed. DATABASE: Telemetry strips reveal sinus rhythm. [place] AV conduction with long first-degree AV block. ASSESSMENT AND PLAN: Mr. Desai is a pleasant 68-year-old man with prior history of congestive heart failure, recurrent atrial arrhythmias after repeat ablation, most recently December 07, 2018 with recurrence, for which he was started on flecainide and cardioverted due to marked bradycardia and trifascicular block. He did undergo a dual-chamber pacemaker implantation, which seems to be functioning adequately currently. He is continued on flecainide with low-dose with no recurrence of atrial arrhythmias so far. Incidentally, thoracic aneurysm was found and consideration for surgical repair is made. Dr. Trejo is managing this. At this point, again, I think his pacemaker stable. No new changes are made. I will sign out and planned to see him back in the office in about three months. Job ID: [id number]
--- NOTE | 2019-02-28 19:22 | PDOC.CTH ---
Cardiology Progress Note - Subjective No new issues. Doing well. - Objective Vital Signs Temp Pulse Resp BP Pulse Ox 02/28/19 15:35 98.8 F 72 16 126/78 94 L 02/28/19 12:18 97.7 F 76 14 144/80 H 97 02/28/19 07:44 97.7 F 72 18 141/79 H 95 Weight 227 lb 1.6 oz 02/27/19 02/28/19 03/01/19 06:59 06:59 06:59 Intake Total 750 2586 1530 Output Total 1650 1650 975 Balance -900 936 555 - Physical Examination General/Neuro: alert & oriented x3, NAD Neck: no JVD present Lungs: CTA, unlabored respirations Heart: RRR Abdomen: NT/ND Extremities: + edema B (no edema) - Telemetry Telemetry Rhythm: NSR - Labs Result Diagrams: 02/26/19 11:57 02/28/19 04:12 Troponin/CKMB Troponin I Less than 0.010 ng/mL (< 0.028) 02/26/19 18:57 - Assessment/Plan 1. Ascending aortic aneurysm 5.[address] angio. 2. Paroxysmal afib 3. SSS, s/p PPM placement in the past. 4. HTN 5. Moderate LCx disease. PLAN: - We had a long discussion about his aneurysm. First CT chest was without arterial contrast and it measured 5.5, I repeated CT but now CT angio and it measured 5.0 cm which goes with my measurement in [facility]. I would believe the CT angio more as it is a very good study, contrast is fully in the arterial side and my measurements would agree with 5.0 at it's largest diameter. Will wait for now and re image in 6 months to assess progression of size. - He may be discharged and will follow up in 4-6 weeks and will have him keep a log of his BP's and decided on up titration of his medications.
--- NOTE | 2019-03-01 03:44 | DIS ---
DATE OF ADMISSION: 02/26/2019 DATE OF DISCHARGE: 02/28/2019 CONSULTANTS: 1. Electrophysiology/Cardiology, Dr. You. 2. Cardiology, Dr. Trejo. MEDICATIONS: Reconciled at discharge and unchanged compared to admission. 1. Flecainide 50 mg p.o. b.i.d. 2. Amlodipine 5 mg daily. 3. Aspirin 81 mg daily. 4. Atenolol 25 mg b.i.d. 5. Levothyroxine 200 mcg daily. FINAL DIAGNOSES: 1. Acute kidney injury, mild and resolved. 2. Ascending aortic aneurysm at 5.0 cm. 3. Paroxysmal atrial fibrillation and flutter. 4. Shortness of breath, resolved. SECONDARY DIAGNOSES: 1. Sick sinus syndrome, status post pacemaker. 2. Hypertension. 3. Hypothyroidism. 4. Anemia, mild. HISTORY OF PRESENT ILLNESS: Mr. Desai is a 68-year-old male with history of atrial fibrillation, and Amulet device of the left atrial appendage, hypertension, hypothyroidism, hemorrhagic CVA, sick sinus syndrome status post pacemaker implantation, who presented to the emergency room with a complaint of shortness of breath. The patient only describes it felt like "something was not right," he was found to be slightly hypertensive with possible heart failure and hospitalist called for admission. HOSPITAL COURSE: The patient was monitored on telemetry and maintained a paced rhythm. The shortness of breath has completely resolved. He was noted to have a thoracic aortic aneurysm measuring 5.5 cm, was evaluated by Dr. Trejo and underwent catheterization for further characterization. The catheterization was normal, echocardiogram shows a normal ejection fraction, with a moderately dilated left atrium and mild AR, moderate TR, mild [place] with a dilated aortic root at 4.5 cm. Due to this, the patient underwent a CT dissection protocol which showed mid ascending thoracic aorta was 5 cm. In discussion with Dr. Trejo today, he will follow up in the outpatient clinic for monitoring in approximately 4-6 weeks. No changes to his medications. The patient was evaluated by Dr. You due to atrial fibrillation and concern that his presenting symptoms were associated with this. Dr. You interrogated the pacemaker, made some adjustments to it, and he can follow up in the outpatient setting. The patient is overall feeling well, status post three contrast studies, one each day including today and the past 2 days. He has tolerated this well, has been hydrated with IV fluids, and his renal function is normal. The patient overall doing well, does meet criteria for discharge to home. PHYSICAL EXAMINATION: VITAL SIGNS: On day of discharge, blood pressure 126/78, temp 98.8, pulse 72, respirations 16, saturations 94% on room air. GENERAL: Awake, alert, responsive, in no apparent distress. Able to speak in full sentences. LUNGS: Clear to auscultation bilateral. No audible wheezing, rhonchi, or rales. HEART: Normal S1, S2. Regular rate. No significant murmurs. ABDOMEN: Soft with present bowel sounds. Nontender, nondistended. FUENTES FINDINGS AND TEST RESULTS: CBC; 7.6, 11.4, 36.3, 277. D-dimer 0.45. Chemistry; 138, 4.2, 105, 25, 14, 0.96, 96. Troponin x3 negative. BNP 118. CT dissection protocol shows a 5-cm mid ascending thoracic aorta, cardiomegaly, dilatation of the pulmonary trunk suggesting pulmonary arterial hypertension. Echocardiogram shows an EF of 60% to 65%, moderately dilated left atrium, mild MR, mild AR, moderate TR and mild [place], and dilated aortic root at 4.[address] angiogram on February 26 shows negative for PE, aneurysmal dilatation of the ascending aorta up to 5.5 cm and no evidence of dissection. Chest x-ray on February 26, mild cardiomegaly with mild vascular congestion. DIET: Heart healthy. ACTIVITY: No limitations. FOLLOWUP: With Dr. Trejo in 4-6 weeks for monitoring of heart and aneurysm. Following up with Dr. Salguero - the primary care physician within a week to review this hospitalization and any other health needs. DISCHARGE DISPOSITION: Home. CODE STATUS: Full. Reviewed with patient this hospitalization, the importance of followup and the seek care precautions. No questions or further needs at the end of evaluation. Total time coordinating discharge is less than 30 minutes. Job ID: [id number] MTDD
== END 2019-02-28 18:15 | disposition home or self-care (01) | DRG 287 ==
LOC: ERS 11:34 → OBSVTOIN 18:43 → 2SW 18:43
PROVIDERS: ADMIT Internal Medicine; ATTEND Internal Medicine
PROC: 4A023N7 Measurement of Cardiac Sampling and Pressure, Left Heart, Percutaneous Approach (ICD-10-PCS; principal; 2019-02-27)
PROC: B2151ZZ Fluoroscopy of Left Heart using Low Osmolar Contrast (ICD-10-PCS; 2019-02-27)
PROC: B2111ZZ Fluoroscopy of Multiple Coronary Arteries using Low Osmolar Contrast (ICD-10-PCS; 2019-02-27)
PROC: B3101ZZ Fluoroscopy of Thoracic Aorta using Low Osmolar Contrast (ICD-10-PCS; 2019-02-27)
DX: I11.0 Hypertensive heart disease with heart failure (principal); I48.92 Unspecified atrial flutter; N17.9 Acute kidney failure, unspecified; I50.9 Heart failure, unspecified; D64.9 Anemia, unspecified; I71.2 Thoracic aortic aneurysm, without rupture; I48.0 Paroxysmal atrial fibrillation; I49.5 Sick sinus syndrome; Z95.0 Presence of cardiac pacemaker; E03.9 Hypothyroidism, unspecified; Z86.73 Personal history of transient ischemic attack (TIA), and cerebral infarction without residual deficits; Z87.891 Personal history of nicotine dependence; Z79.82 Long term (current) use of aspirin; Z79.899 Other long term (current) drug therapy
CPT/HCPCS: 36415; 71046; 71275; 80048; 80053; 82550; 83880; 84484; 85025; 85379; 93005; 93306; 93458; 99152; 99153; C1769; J1644; J1940; J2001; J2250; J3010; Q9966

== ENCOUNTER 2019-03-07 10:51 | Emergency (ER) | payer BC, MEDICARE | END 2019-03-07 12:20 | disposition home or self-care (01) | LOC: ERS 10:51 | DX: I97.630 Postprocedural hematoma of a circulatory system organ or structure following a cardiac catheterization (principal); I49.9 Cardiac arrhythmia, unspecified; I48.91 Unspecified atrial fibrillation; I10 Essential (primary) hypertension; Z86.73 Personal history of transient ischemic attack (TIA), and cerebral infarction without residual deficits; Z87.891 Personal history of nicotine dependence; Z79.82 Long term (current) use of aspirin; Z79.899 Other long term (current) drug therapy | CPT/HCPCS: 99283 ==

== ENCOUNTER 2019-06-04 18:12 | Observation (INO) | payer BC, MEDICARE ==
[2019-06-04 19:07] LABS: Hemoglobin 11.4 g/dL (14.0-18.0); Mean Corpuscular Hemoglobin 27.2 pg (27.0-31.0); Mean Corpuscular Volume 82.4 fL (78.0-98.0); Mean Platelet Volume 7.7 fL (7.4-10.4); Platelet Count 321 thou/uL (130-400); Red Blood Cell (RBC) Count 4.21 mill/uL (4.70-6.10); White Blood Cell (WBC) Count 7.8 thou/uL (4.8-10.8)
[2019-06-04 19:23] LABS: Anisocytosis SLIGHT = 6-15 cells (100X) (0-5/hpf); Band 1 % (5-11); Eosinophils 4 % (0-10); Lymphocytes 21 % (21-51); MDiff Complete? YES; Monocytes 15 % (0-10); Neutrophil 57 % (42-75); Ovalocytes SLIGHT = 2-5 cells (100X) (0-1/hpf); Platelet Morphology Comment Appears Adequate; Polychromasia SLIGHT = 2-3 cells (100X) (0-2/hpf); Reactive Lymphocytes 2 % (0-10)
[2019-06-04 19:26] LABS: ALT (SGPT) 16 U/L (8-55); AST (SGOT) 18 U/L (5-34); Albumin 4.2 g/dL (3.4-4.8); Alkaline Phosphatase 81 U/L (40-110); Anion Gap 12 mmol/L (10-20); BUN (Urea Nitrogen) 27 mg/dL (8.4-25.7); Bilirubin, Total 0.7 mg/dL (0.2-1.2); CK (CPK) 108 U/L (30-200); Calc. Creatinine Clearance 0 mL/min (70-130); Calcium 9.4 mg/dL (7.8-10.44); Carbon Dioxide 28 mmol/L (23-31); Chloride 102 mmol/L (98-107); Estimated GFR-MDRD 50; Globulin 3.4 g/dL (2.4-3.5); Glucose 88 mg/dL (80-115); Potassium 3.9 mmol/L (3.5-5.1); Protein, Total 7.6 g/dL (5.8-8.1); Sodium 138 mmol/L (136-145)
--- NOTE | 2019-06-04 20:04 | RAD ---
AP CHEST: HISTORY: Cough. Shortness of breath. Dyspnea. COMPARISON: 01/26/2019 FINDINGS: Mild cardiomegaly with transvenous pacemaker leads. Mild vascular engorgement. No infiltrate or signi ficant effusion. No significant change from the exam of 01/26/2019. POS: AGW
[2019-06-04] MEDS ORDERED: Furosemide 40 MG/4 ML VIAL ONE (20:22)
[2019-06-05] MEDS ORDERED: Ondansetron PF 4 MG/2 ML Vial IVP PRN (06:04)
[2019-06-05] MEDS ORDERED: Acetaminophen 325 MG TAB PO PRN (06:04)
[2019-06-05] MEDS ORDERED: Acetaminophen 650 MG Suppository PR PRN (06:04)
--- NOTE | 2019-06-05 06:10 | PDOC.HHP ---
Hospitalist HPI - History of Present Illness Shortness of breath History of Present Illness: Mr. Desai is a pleasant 69M presenting with progressively worsening shortness of breath x 1 week. He states yesterday he went to the store and after walking from his car to the door he had to sit and rest due to heavy breathing. He states this is very unusual for him, however he has been here with similar symptoms in February 2019. He denies having any chest pain or palpitations. No lightheadedness of dizziness. Has otherwise felt well in himself. He does report noting increased abdominal girth and fluid retention in his legs with visible indents from his socks on his legs. In the last week he reports gaining 8 lbs. He has a history of sick-sinus syndrome which developed following cardioversion for afib. He therefore had a pacemaker placed. He is known to Dr. Trejo. ED Course: In the ED the patient had labs done showing an slightly elevated BNP of 116.8, with a normal troponin. CK was normal and BMP was notable for BUN 27, creatinine of 1.42, GFR of 50, which appeared to be worse from baseline. WCC was normal at 7,8, hgb 11.4, Platelets 321. CXR done showed mild cardiomegaly with transvenous pacemaker leads. Mild vascular engorgement. No infiltrate or significant effusion. Overall xray appeared unchanged compared to that done in 01/2019. He was treated with lasix 40 mg IV and has felt improvement in shortness of breath, abdo distention as well as leg swelling. Hospitalist ROS - Review of Systems Constitutional: denies: fever, chills, sweats, weakness, malaise, other Eyes: denies: pain, vision change, conjunctivae inflammation, eyelid inflammation, redness, other ENT: denies: ear pain, ear discharge, nose pain, nose discharge, nose congestion , mouth pain, mouth swelling, throat pain, throat swelling, other Respiratory: reports: shortness of breath, SOB with excertion. denies: cough, dry, hemoptysis, pleuritic pain, sputum, wheezing, other Cardiovascular: reports: edema. denies: chest pain, palpitations, orthopnea, paroxysmal noc. dyspnea, light headedness, other Gastrointestinal: reports: other (increased abdominal girth). 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 He is able to go a day without drinking and without having symptoms of withdrawal.) Drugs: reports: none Living Situation: With Family - Exam General Appearance: NAD, awake alert Eye: PERRL, anicteric sclera ENT: normocephalic atraumatic, no oropharyngeal lesions, dry oral mucosa Neck: supple, symmetric, no lymphadenopathy Heart: RRR, no murmur, no gallops, no rubs, normal peripheral pulses Respiratory: CTAB, no wheezes, no rales, no ronchi Respiratory - other findings: decreased at bilateral bases Gastrointestinal: soft, non-tender, no guarding, no rigidity, distended Extremities: no cyanosis, no clubbing, no edema Skin: no lesions, no rashes Neurological: cranial nerve grossly intact, normal sensation to touch, no weakness, no focal deficits Musculoskeletal: normal tone, normal strength, no muscle wasting Psychiatric: normal affect, normal behavior, A&O x 3 Hospitalist Results - Labs Result Diagrams: 06/04/19 18:44 06/04/19 18:44 Lab results: WBC 7.8 thou/uL (4.8-10.8) 06/04/19 18:44 Hgb 11.4 g/dL (14.0-18.0) L 06/04/19 18:44 Hct 34.7 % (42.0-52.0) L 06/04/19 18:44 MCV 82.4 fL (78.0-98.0) 06/04/19 18:44 Plt Count 321 thou/uL (130-400) 06/04/19 18:44 Band Neuts % (Manual) 1 % (5-11) L 06/04/19 18:44 Sodium 138 mmol/L (136-145) 06/04/19 18:44 Potassium 3.9 mmol/L (3.5-5.1) 06/04/19 18:44 Chloride 102 mmol/L (98-107) 06/04/19 18:44 Carbon Dioxide 28 mmol/L (23-31) 06/04/19 18:44 BUN 27 mg/dL (8.4-25.7) H 06/04/19 18:44 Creatinine 1.42 mg/dL (0.7-1.3) H 06/04/19 18:44 Glucose 88 mg/dL (80-115) 06/04/19 18:44 Calcium 9.4 mg/dL (7.8-10.44) 06/04/19 18:44 Total Bilirubin 0.7 mg/dL (0.2-1.2) 06/04/19 18:44 AST 18 U/L (5-34) 06/04/19 18:44 ALT 16 U/L (8-55) 06/04/19 18:44 Alkaline Phosphatase 81 U/L (40-110) 06/04/19 18:44 Creatine Kinase 108 U/L (30-200) 06/04/19 18:44 Troponin I Less than 0.010 ng/mL (< 0.028) 06/04/19 18:44 B-Natriuretic Peptide 116.8 pg/mL (0-100) H 06/04/19 18:44 Serum Total Protein 7.6 g/dL (5.8-8.1) 06/04/19 18:44 Albumin 4.2 g/dL (3.4-4.8) 06/04/19 18:44 - EKG Interpretation EKG: Afib with controlled ventricular response, HR 77, paced. Incomplete RBBB. - Radiology Interpretation Chest x-ray Status: report reviewed by mn Hospitalist H&P A/P - Problem (1) Shortness of breath Code(s): R06.02 - SHORTNESS OF BREATH Status: Acute (2) Hypertension Code(s): I10 - ESSENTIAL (PRIMARY) HYPERTENSION Status: Chronic (3) CAD (coronary artery disease) Code(s): I25.10 - ATHSCL HEART DISEASE OF [place] CORONARY ARTERY W/O ANG PCTRS Status: Chronic (4) A-fib Code(s): I48.91 - UNSPECIFIED ATRIAL FIBRILLATION Status: Chronic (5) ELPIDIO (acute kidney injury) Code(s): N17.9 - ACUTE KIDNEY FAILURE, UNSPECIFIED Status: Chronic (6) Hypothyroidism Code(s): E03.9 - HYPOTHYROIDISM, UNSPECIFIED Status: Chronic - Plan Plan: Hold further diuresis for now until assessed by day team, given ELPIDIO. Fluid restrictions, daily weight Echo done in 02/2019, no indication for repeat. 12-14 alcoholic beverages a week, denies withdrawal symptoms. ASE protocol. Monitor BP. Resume home meds once verified. CODE STATUS: FULL Surrogate decision maker is his , Levy Desai.
[2019-06-05] MEDS ORDERED: Famotidine/PF 20 mg/2ml Vial SLOW IVP SCH (09:00)
[2019-06-05] MEDS ORDERED: Famotidine/PF 20 mg/2ml Vial ONE (09:50)
[2019-06-05] MEDS: Atenolol 25 MG TAB PO SCH ×2 (09:57→20:29)
[2019-06-05] MEDS: Flecainide 50 MG TAB PO SCH ×2 (09:57→20:29)
[2019-06-05] MEDS: Levothyroxine Sodium 100 MCG TAB PO SCH (09:58)
[2019-06-05 13:38] VITALS: BMI 33.5
[2019-06-05] MEDS ORDERED: Furosemide 40 MG/4 ML VIAL SLOW IVP SCH (17:45)
--- NOTE | 2019-06-05 17:58 | CON ---
DATE OF CONSULTATION: 06/05/2019 REASON FOR CONSULTATION: Shortness of breath. PRIMARY NIB INSPECTOR: Gigi Trejo MD HISTORY OF PRESENT ILLNESS: Mr. Desai is a pleasant 69-year-old white gentleman, very well known to myself, who comes to the hospital for worsening shortness of breath. He has noted worsening shortness of breath for the last 1 or 2 weeks to the point where he would have to proper himself up to sleep. He would start coughing and get short winded if he was left flat on his back, so he had to sleep on his side, and even then he could not lay on his side for too long. He was admitted, given one dose of IV Lasix, and he diuresed some and already feels better. He has a history of atrial fibrillation, for which he had a [place]NA cardioversion and was placed on flecainide and atenolol and is on aspirin alone for stroke prophylaxis. He also has a history of an ascending aortic aneurysm, measuring at 5.[address] angiogram. He had mild coronary artery disease. He currently feels better. He is able to walk around without his oxygen, but he drops down to the 90s, upper 80s without it. On 2L, he is in the mid 90s. He denies any chest pain, tightness, or pressure. PAST MEDICAL HISTORY: 1. Paroxysmal atrial fibrillation. 2. CAD. 3. Hypertension. 4. Ascending aortic aneurysm. 5. Hemorrhagic CVA in the past. 6. Hypothyroidism. 7. Sick sinus syndrome status post pacemaker placement. SURGICAL HISTORY: 1. Pacemaker placement. 2. OK[place]NA cardioversion. 3. Heart catheterization. 4. Atrial fibrillation and A flutter ablation by Dr. Recinos and Dr. Simpson in the past. 5. Amplatzer occlusion device for left atrial appendage, placed by Dr. Recinos recently. OUTPATIENT MEDICATIONS: 1. Atenolol 25 mg b.i.d. 2. Flecainide 50 mg b.i.d. 3. Levothyroxine 200 mcg a day. 4. Amlodipine 5 mg a day. 5. Aspirin 81 mg a day. SOCIAL HISTORY: Quit smoking 40 years ago. Uses alcohol socially, but is actually about 18 drinks a week. No drug use. FAMILY HISTORY: Sister with AFib. Father of malignancy. REVIEW OF SYSTEMS: A 12-point review of systems was done and was all negative unless stated in the history of present illness. PHYSICAL EXAMINATION: VITAL SIGNS: Temperature 97.8, pulse 70, respiratory rate 14, saturating 95% on 2L nasal cannula, and blood pressure 133/75. GENERAL: Awake, alert, and oriented x3, in no distress. HEENT: Normocephalic and atraumatic. NECK: Supple. LUNGS: Clear. CARDIOVASCULAR: S1 and S2. No S3 or S4. There is a grade 2/6 systolic murmur at the right upper sternal border. ABDOMEN: Soft with possible ascitic wave. EXTREMITIES: 2+ edema. SKIN: Warm and dry. LABORATORY DATA: Laboratory work was reviewed. White count of 7.8, hemoglobin 11.4, hematocrit of 34, and platelet count of 321. Chemistries were unremarkable except for a BUN of 27 and creatinine of 1.4. Troponin was negative x1. BNP was 116. Albumin of 4.2. Chest x-ray, mild pulmonary engorgement, mild pulmonary edema. ASSESSMENT AND PLAN: 1. [id number] diastolic heart failure. 2. Paroxysmal atrial fibrillation status post atrial fibrillation and atrial flutter ablation. 3. History of hemorrhagic stroke status post Amplatzer occluded device of left atrial appendage. 4. Mild coronary artery disease. 5. Ascending aortic aneurysm, measured 5.0 cm in the recent CT angiogram. PLAN: 1. We will give one more dose of IV Lasix as he needs a little more diuresis. 2. We will get an abdominal ultrasound, looking for ascites. Also we would like to see what his liver contour is, even though his LFTs are normal with his alcohol use. I just want to make sure this looks okay and there is no cirrhotic look to the liver. 3. We will interrogate pacemaker to make sure he has not been in atrial fibrillation, causing him to go into heart failure. 4. Echocardiogram pending. Thank you for letting us to participate in the care of your patient. We will follow. Job ID: [id number]
--- NOTE | 2019-06-05 18:50 | ULT ---
ABDOMINAL ULTRASOUND: 06/05/19 Four quadrant ultrasound obtained. INDICATIONS: Question ascites. Four quadrant ultrasound shows no evidence of ascites. IMPRESSION: No evidence of significant ascites. POS: AGW
[2019-06-05] MEDS: Famotidine 20 MG TAB PO SCH (20:29)
[2019-06-06 08:54] LABS: Mean Corpuscular HGB CONC 32.4 g/dL (32.0-36.0); Mean Corpuscular Hemoglobin 27.1 pg (27.0-31.0); Mean Corpuscular Volume 83.7 fL (78.0-98.0); Mean Platelet Volume 7.5 fL (7.4-10.4); Platelet Count 318 thou/uL (130-400); RBC Distribution Width 14.8 % (11.5-14.5); Red Blood Cell (RBC) Count 4.45 mill/uL (4.70-6.10); White Blood Cell (WBC) Count 7.2 thou/uL (4.8-10.8)
[2019-06-06] MEDS ORDERED: FLU VACC TS2019-20(65YR UP)/PF 180 MCG/0.5 ML SYRINGE IM ONE (09:00)
[2019-06-06 09:12] LABS: Anion Gap 14 mmol/L (10-20); BUN (Urea Nitrogen) 22 mg/dL (8.4-25.7); Calc. Creatinine Clearance 73 mL/min (70-130); Calcium 9.3 mg/dL (7.8-10.44); Carbon Dioxide 28 mmol/L (23-31); Chloride 100 mmol/L (98-107); Estimated GFR-MDRD 50; Glucose 105 mg/dL (80-115); Potassium 4.1 mmol/L (3.5-5.1); Sodium 138 mmol/L (136-145)
[2019-06-06] MEDS: Flecainide 50 MG TAB PO SCH (09:30)
[2019-06-06] MEDS: Levothyroxine Sodium 100 MCG TAB PO SCH (09:30)
[2019-06-06] MEDS: Famotidine 20 MG TAB PO SCH (09:30)
[2019-06-06] MEDS: Atenolol 25 MG TAB PO SCH (09:30)
[2019-06-06 09:38] LABS: Anisocytosis SLIGHT = 6-15 cells (100X) (0-5/hpf); Band 5 % (5-11); Eosinophils 4 % (0-10); Lymphocytes 16 % (21-51); MDiff Complete? YES; Monocytes 8 % (0-10); Neutrophil 67 % (42-75); Platelet Morphology Comment Appears Adequate
[2019-06-06 12:09] VITALS: BP 107/76; TEMP 98.3
--- NOTE | 2019-06-06 17:14 | PDOC.CPN ---
- Subjective Date: 06/06/19 Time: 12:00 Interval history: he is doing well. Back to baseline, not SOB. On Room air. - Review of Systems General: denies: fever/chills, weight/appetite/sleep changes, night sweats, fatigue Respiratory: denies: cough, congestion, shortness of breath, exercise intolerance Cardiovascular: denies: chest pain, palpitation, edema, paroxysmal nocturnal dyspnea, orthopnea Gastrointestinal: denies: nausea, vomiting, diarrhea, constipation, abd pain, GI bleeding Musculoskeletal: denies: pain, tenderness, stiffness, swelling, arthritis/ arthralgias Neurological: denies: numbness, syncope, seizure, weakness - Objective Allergies/Adverse Reactions: Allergies Allergy/AdvReac Type Severity Reaction Status Date / Time No Known Allergies Allergy Verified 02/26/19 20:03 Vital Signs & Weight: Vital Signs Temp Pulse Resp BP BP Pulse Ox 06/06/19 11:23 98.3 F 77 16 107/76 94 L 06/06/19 09:30 74 110/73 06/06/19 07:37 97.7 F 74 20 110/73 95 06/06/19 05:20 97.9 F 72 18 116/66 93 L Weight 225 lb 14.4 oz - Physical Exam General: alert & oriented x3 HEENT: mucus membranes moist, normocephaly, mucus membranes dry Neck: supple neck, midline trachea Cardiac: regular rate and rhythm, no murmur Lungs: clear to auscultation, no wheeze, rales, rhonchi Neuro: grossly intact Abdomen: active bowel sounds, soft, non-tender Extremities: no edema Skin: clear Musculoskeletal: no pain - Labs Result Diagrams: 06/06/19 08:26 06/06/19 08:26 Troponin/CKMB Troponin I Less than 0.010 ng/mL (< 0.028) 06/04/19 18:44 - Telemetry Sinus rhythms and dysrhythmias: sinus rhythm - Assessment/Plan Assessment/Plan: 1. Acute on chronic diastolic heart failure. 2. Ascending aortic aneurysm, 5.[address] angio 3 months ago. 3. Paroxysmal afib 4. Hx of hemorrhagic CVA 5. Mild CAD. 6. Elevated right sided pressures. PLAN: - Continue home meds - Mild pulmonary HTN likely cause of decompensation. - May discharge home. - Follow up in the office in 4-6 wks.
== END 2019-06-06 13:59 | disposition home or self-care (01) ==
LOC: ERS 18:12 → ERHOLD 20:40 → 2SW 06-05 13:26
PROVIDERS: ADMIT Family Medicine; ATTEND Family Medicine
DX: I11.0 Hypertensive heart disease with heart failure (principal); I50.33 Acute on chronic diastolic (congestive) heart failure; I48.0 Paroxysmal atrial fibrillation; I71.2 Thoracic aortic aneurysm, without rupture; I25.10 Atherosclerotic heart disease of native coronary artery without angina pectoris; E03.9 Hypothyroidism, unspecified; I49.5 Sick sinus syndrome; N17.9 Acute kidney failure, unspecified; Z86.73 Personal history of transient ischemic attack (TIA), and cerebral infarction without residual deficits; Z87.891 Personal history of nicotine dependence; Z79.82 Long term (current) use of aspirin; Z79.899 Other long term (current) drug therapy; Z95.0 Presence of cardiac pacemaker
CPT/HCPCS: 36415; 71045; 76705; 80048; 80053; 82550; 83880; 84484; 85025; 93005; 93306; 96374; 96375; 96376; G0378; J1940; S0028

== ENCOUNTER 2019-07-30 08:34 | Outpatient (CLI) | payer BC, MEDICARE ==
[2019-07-30] MEDS ORDERED: Iopamidol 370 76% 100 ML VIAL ONE (11:34)
--- NOTE | 2019-08-01 15:43 | CT ---
CT ANGIOGRAM THORAX WITH IV CONTRAST AND 3-D RECONSTRUCTIONS CLINICAL INDICATION: Follow-up thoracic aortic aneurysm without rupture. COMPARISON: 02/26/2019 FINDINGS: Pulmonary arteries: No filling defects are seen in the pulmonary arteries to suggest a pulmonary embo kehinde. Mild prominence of the central pulmonary arteries is again noted which can be seen with pulmonary artery hypertension. Aorta: Again noted is aneurysmal dilatation of the ascending thoracic aorta which measures approximat tayo 5 cm in diameter at the level of the mid ascending aorta. The aorta at the level of the sinus of Valsalva again measures approximately 4 cm with the descending thoracic aorta measuring 2.9 cm. Va scular calcifications are seen in the thoracic aorta. There is no evidence of an aortic dissection. There is a common origin of the left common carotid artery and innominate artery. Visualized proximal great vessels are patent. Lungs: There is dependent atelectasis bilaterally with tiny right pleural effusion. There is small am ount of fluid in the lower superior aspect of the major fissure posteriorly with adjacent atelectasis. No discrete pulmonary nodule or mass is seen bilaterally. Mediastinum: A dual-lead left subclavian cardiac pacemaking device remains in place. A left atrial oc clusion device is again noted. The heart remains in enlarged. Few mildly enlarged subcarinal lymph nodes are present measuring 1.6 cm in short axis dimension. Ther e is also soft tissue density present in the right hilar region also likely due to prominent right hilar lymph nodes. There is increase in number of several lymph nodes in a pretracheal location in th e upper mediastinum. This is a stable finding. Thyroid gland: Incompletely imaged. Osseous structures: Degenerative changes are seen in the spine Chest wall: No abnormality visualized. Upper abdomen: Subcentimeter too small to characterize hypodense lesion is again seen in the right he patic lobe. IMPRESSION: 1. Stable ascending thoracic aortic aneurysm. 2. Cardiomegaly. 3. No CT evidence of a pulmonary embolus. However, there is mild enlargement of the central pulmonary arteries suggesting pulmonary artery hypertension. 4. Mediastinal and right hilar lymphadenopathy of uncertain etiology. 5. Tiny right pleural effusion with low-density area in the superior segment right lower lobe which m ay be related to fluid in the region of the superior aspect major fissure with associated atelectasis.
== END 2019-07-30 08:35 | disposition home or self-care (01) ==
LOC: CT 08:34
PROVIDERS: ATTEND Internal Medicine Cardiovascular Disease
DX: I71.2 Thoracic aortic aneurysm, without rupture (principal); I51.7 Cardiomegaly; I77.89 Other specified disorders of arteries and arterioles; R59.0 Localized enlarged lymph nodes; J90 Pleural effusion, not elsewhere classified
CPT/HCPCS: 71275; 82565; Q9967

== ENCOUNTER 2020-02-21 14:36 | Inpatient (IN) | payer BC, MEDICARE ==
[2020-02-21 15:52] LABS: Hemoglobin 6.9 g/dL (14.0-18.0); Mean Corpuscular HGB CONC 29.9 g/dL (32.0-36.0); Mean Corpuscular Hemoglobin 18.5 pg (27.0-31.0); Mean Corpuscular Volume 61.8 fL (78.0-98.0); Mean Platelet Volume 10.9 fL (7.4-10.4); Platelet Count 458 thou/uL (130-400); RBC Distribution Width 19.3 % (11.5-14.5); Red Blood Cell (RBC) Count 3.72 mill/uL (4.70-6.10); White Blood Cell (WBC) Count 11.3 thou/uL (4.8-10.8)
[2020-02-21 16:07] LABS: Anisocytosis MODERATE=16-30 cells (100X) (0-5/hpf); Band 1 % (5-11); Elliptocytes SLIGHT = 2-5 cells (100X) (0-1/hpf); Eosinophils 6 % (0-10); Hypochromia MODERATE=16-30 cells (100X) (0-5/hpf); Large Platelets SLIGHT; Lymphocytes 18 % (21-51); MDiff Complete? YES; Microcytosis MODERATE=15-30 cells (100X) (0-5/hpf); Monocytes 14 % (0-10); Neutrophil 61 % (42-75); Nucleated RBC 1 % (0); Ovalocytes SLIGHT = 2-5 cells (100X) (0-1/hpf); Platelet Morphology Comment Appears Adequate; Poikilocytosis SLIGHT = 6-15 cells (100X) (0-5/hpf); Polychromasia MODERATE = 3-4 cells (100X) (0-2/hpf); Reflex for Review?? YES; Target Cells SLIGHT = 2-5 cells (100X) (0-1/hpf)
[2020-02-21 16:11] LABS: ALT (SGPT) 18 U/L (8-55); AST (SGOT) 22 U/L (5-34); Albumin 3.9 g/dL (3.4-4.8); Alkaline Phosphatase 80 U/L (40-110); Anion Gap 14 mmol/L (10-20); BUN (Urea Nitrogen) 26 mg/dL (8.4-25.7); Bilirubin, Total 0.9 mg/dL (0.2-1.2); Calc. Creatinine Clearance 0 mL/min (70-130); Calcium 9.2 mg/dL (7.8-10.44); Carbon Dioxide 25 mmol/L (23-31); Chloride 101 mmol/L (98-107); Estimated GFR-MDRD 41; Globulin 3.5 g/dL (2.4-3.5); Glucose 110 mg/dL (80-115); Potassium 4.4 mmol/L (3.5-5.1); Protein, Total 7.4 g/dL (5.8-8.1); Sodium 136 mmol/L (136-145)
--- NOTE | 2020-02-21 16:46 | NM ---
NUCLEAR MEDICINE PULMONARY PERFUSION SCAN: DATE: 02/21/2020 HISTORY: 69-year-old male with dyspnea TECHNIQUE: Xenon-133 gas not used because of COVID-19 pandemic and concern for viral contamination of ventilatio n equipment. Technetium 99m-MAA dose: 6.2 mCi Technetium 99m-MAA was injected IV, and multiple perfusion scintigraphic images were obtained. FINDINGS: There are no moderate sized or large perfusion defects. IMPRESSION: Low probability for pulmonary thromboembolism.
--- NOTE | 2020-02-21 17:16 | RAD ---
EXAM: CHEST TWO VIEWS: 02/21/20 HISTORY: Worsening shortness of breath. COMPARISON: 02/18/20. FINDINGS: Left ICD. Cervical device in the region of the left atrium. Evidence for bilateral vascular congestio n and minimal interstitial edema with bilateral pleural effusions. Slightly worse when compared to th e prior 02/18/20 study raising concern for some pulmonary edema and congestive heart failure. No new co nfluent process. IMPRESSION: Progressive interstitial edema with vascular congestion and pleural effusions, evidence for minimal c ongestive heart failure and interstitial edema. No evidence for confluent pneumonia. POS: [facility]
[2020-02-21 17:50] VITALS: BMI 30.2
[2020-02-21] MEDS ORDERED: Ondansetron ODT 4 MG TAB PO PRN (18:22)
[2020-02-21] MEDS ORDERED: HYDROcodone/Acetaminophen 5/325 mg Tablet PO PRN (18:22)
[2020-02-21] MEDS ORDERED: Acetaminophen 325 MG TAB PO PRN (18:22)
[2020-02-21] MEDS ORDERED: Zolpidem Tartrate 5 MG TAB PO PRN (18:22)
--- NOTE | 2020-02-21 18:52 | PRG ---
DATE OF SERVICE: 02/21/2020 Mr. Desai was seen in the office today. He had an echocardiogram that showed LV function to be normal. 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 This is a known diagnosis and he had a CT angio done about an 8 to 10 months ago, that showed the root at 5.0 cm. He is scheduled to have another CTA in the next few months for re-evaluation. He presented to my office and he seemed very pale much more than normal and his shortness of breath, which has been chronic for the last year has been a lot worse in the last 2 to 3 weeks. He states he had a blood work earlier in the week and his hemoglobin was low and he was advised he needed to start taking iron. He tells me that he has had some, what he thinks might have been bloody stools, but he is unclear of this. Because of his possibility of GI bleeding, severe symptomatic anemia, and him having severe pulmonary hypertension with right ventricular systolic pressures in the 90 mmHg range, he is high risk for decompensation, so he was sent to the ER for admission and possibly most likely transfusion. I would recommend he get his hemoglobin closer to 10 before discharge. He is also undergoing evaluation for his pulmonary hypertension. There is concern for amyloid or sarcoid and I will ask General Surgery to evaluate, see if they can perform a fat pad biopsy while he is here or if this is to be done as an outpatient, it should be okay as well as long as it is already set up before discharge. Thank you for letting us to participate in the care of this patient. Please call with any questions. Job ID: [id number]
[2020-02-21] MEDS ORDERED: Sodium Chloride 0.9% 1,000 ML IV SCH (19:04)
--- NOTE | 2020-02-21 19:16 | HP ---
Admitted to [facility] Emergency Room. PRIMARY CARE PROVIDER: Tristan Aranda MD HISTORY OF PRESENT ILLNESS: The patient presents with progressive shortness of breath of six months. He has obstructive sleep apnea, sleeps with a CPAP. No orthopnea or paroxysmal nocturnal dyspnea. He does have marked dyspnea on exertion at small distances even walking slow. He has a dry cough. PAST MEDICAL HISTORY: Pertinent for pulmonary hypertension, recently diagnosed arrhythmia and atrial fibrillation. He has a pacemaker, left atrial Amulet. He is hypothyroid, post thyroidectomy as a 7-year-old. CURRENT MEDICATIONS: 1. Atenolol 12.5 mg a day. 2. Flecainide 50 mg p.o. b.i.d. 3. Levothyroxine 200 mcg a day. 4. Spironolactone 25 mg a day. 5. Aspirin 81 mg a day. ALLERGIES: NONE. PAST SURGICAL HISTORY: Thyroidectomy at [age] years of age for a knot in his neck, several ablation for atrial fibrillation, and Amulet insertion into his left atrial appendage. FAMILY HISTORY: One half sister has atrial fibrillation, had a stroke. Father with hypertension. His mother had multiple minor illnesses throughout her life and she is . He is . Does not smoke. Drinks occasional alcohol. Full code status. , next of kin. REVIEW OF SYSTEMS: GENERAL: No headaches, dizziness, or fainting. EYES: He wears glasses. Otherwise, no double vision, blurred vision, or flashing lights. 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 EAR, NOSE, AND THROAT: No ear pain or drainage. No nasal bleeding. No oral pain. CARDIAC: No chest pain, orthopnea, or paroxysmal nocturnal dyspnea. RESPIRATIONS: No cough, wheezing, or asthma. GASTROINTESTINAL: No nausea or vomiting. No abdominal pain. He did have dark black Stinky stools earlier this year for a period of time. But, his put him on a colon cleansing diet and it went away. GENITOURINARY: No hematuria, dysuria, or nocturia. MUSCULOSKELETAL: He has ankle swelling. No pain in his muscles. NEUROLOGIC: He had a brain bleed in 2016 that left him with altered right-sided vision, which has essentially resolved. HEME/LYMPH: No tender or swollen lymph nodes in axilla, inguinal, or cervical area. SKIN: Easy bruising, takes a baby aspirin every day. PHYSICAL EXAMINATION: GENERAL: He is alert, appropriate gentleman, in no distress. VITAL SIGNS: Blood pressure 156/88, pulse 75, respirations 24, and temperature 98.9. HEAD, EYES, EARS, NOSE, AND THROAT: Revealed pupils are equal, round, and reactive to light. Extraocular movements are intact. Sclerae are white. Tympanic membranes are clear. Nose is clear. Oral mucous membranes are wet. Dental hygiene is good. NECK: Supple without jugular venous distention, adenopathy, or thyromegaly. CHEST: Clear to auscultation and percussion. HEART: Had a regular rate and rhythm. Accentuated S2. No murmurs. ABDOMEN: Soft. Bowel sounds are normal. There is no hepatosplenomegaly. No mass. No rebound or bruits. EXTREMITIES: Reveal no cyanosis or clubbing. He had 2+ edema. SKIN: Warm and dry without bruises or rash. He does have a few minor ecchymoses from actinic changes on his arms. NEUROLOGIC: Cranial nerves 2 through 12 are intact. Deep tendon reflexes are symmetric. Toes are downgoing. LABORATORY DATA: White count 11.3, hemoglobin 6.9, MCV 62, MCH 18.5, MCHC 29.9, and platelet count 458,000. BUN 26 and creatinine 1.66. Electrolytes and liver functions normal. He had a COVID test as an outpatient, which is normal. EKG reveals a ventricular pacemaker with consistent capture. Nuclear medicine lung scan reveals low probability for pulmonary embolism. Chest x-ray, pacemaker in the left upper chest. No cardiomegaly. No CHF or infiltrates. ADMITTING DIAGNOSES: 1. Dyspnea. 2. Anemia, most likely iron deficient from probable early gastrointestinal bleed earlier this year, pulmonary hypertension, atrial fibrillation, pacemaker, and chronic kidney disease. 3. Hypertension. PLAN: Hold aspirin. I have discussed this case with his installation & maintenance executive, Dr. Trejo. I have called Dr. Akhtar, for an endoscopy treadwell in the morning. He will be transfused tonight with 1 unit of packed cells. An iron-binding capacity has been ordered. Job ID: [id number]
[2020-02-21] MEDS: Flecainide 50 MG TAB PO SCH (21:22)
[2020-02-21] MEDS ORDERED: GoLYTELY 4,000 ml Bottle PO SCH (22:00)
[2020-02-21] MEDS: Atenolol 25 MG TAB PO PRN (23:38)
[2020-02-22] MEDS ORDERED: hydrALAZINE 20 MG/ML VIAL SLOW IVP SCH (05:00)
[2020-02-22] MEDS: Levothyroxine Sodium 100 MCG TAB PO SCH (05:12)
[2020-02-22 06:03] LABS: Anion Gap 13 mmol/L (10-20); BUN (Urea Nitrogen) 23 mg/dL (8.4-25.7); Calc. Creatinine Clearance 72 mL/min (70-130); Calcium 8.6 mg/dL (7.8-10.44); Carbon Dioxide 23 mmol/L (23-31); Chloride 102 mmol/L (98-107); Estimated GFR-MDRD 55; Glucose 95 mg/dL (80-115); Potassium 4.7 mmol/L (3.5-5.1); Sodium 133 mmol/L (136-145)
[2020-02-22 06:12] LABS: Band 2 % (5-11); Eosinophils 4 % (0-10); Hemoglobin 6.9 g/dL (14.0-18.0); Lymphocytes 16 % (21-51); MDiff Complete? YES; Mean Corpuscular HGB CONC 29.5 g/dL (32.0-36.0); Mean Corpuscular Hemoglobin 18.8 pg (27.0-31.0); Mean Corpuscular Volume 63.8 fL (78.0-98.0); Mean Platelet Volume 11.4 fL (7.4-10.4); Monocytes 8 % (0-10); Neutrophil 70 % (42-75); Platelet Count 411 thou/uL (130-400); Platelet Morphology Comment Appears Increased; RBC Distribution Width 21.3 % (11.5-14.5); Red Blood Cell (RBC) Count 3.69 mill/uL (4.70-6.10); White Blood Cell (WBC) Count 10.4 thou/uL (4.8-10.8)
[2020-02-22] MEDS: Spironolactone 25 MG TAB PO SCH (09:56)
[2020-02-22] MEDS: Flecainide 50 MG TAB PO SCH ×2 (09:56→22:00)
[2020-02-22] MEDS: Atenolol 25 MG TAB PO PRN (10:07)
[2020-02-22] MEDS ORDERED: PROPOFOL 200 MG/20 ML VIAL ONE (12:13)
--- NOTE | 2020-02-22 14:06 | CON ---
DATE OF CONSULTATION: 02/22/2020 REASON FOR CONSULTATION: Iron-deficiency anemia. CONSULTING PROVIDER: Pee Zendejas MD HISTORY OF PRESENT ILLNESS: The patient is a 69-year-old gentleman with past medical history of hypertension, hypothyroidism, atrial fibrillation, and more recently pulmonary hypertension, for which he is being followed by Cardiology, presenting with complaints of shortness of breath. He states that over the last 6 months the patient has been having progressively worsening shortness of breath, initially with exertion, but now at rest and exertion. He also states that earlier this year he began having a change in his bowel habits, consisting of having approximately 5 to 7 solid/semi-solid bowel movements per day, that were foul smelling and dark color in coloration, but the patient states that they were not black in coloration. This was associated with some fecal urgency and he states that he was having this on a daily basis for approximately 4 to 5 months. However, after 4 to 5 months, he ultimately underwent a "colon cleanse," and after the colon cleanse, he did not have any further episodes of these darker colored stools. Over the last few months, the patient has also endorsed chronic cough, increasing lower extremity edema, as well as intentional weight loss of approximately 30 to 35 pounds with dietary changes. He currently denies any nausea, vomiting, fevers, chills, hematemesis, hematochezia, abdominal pain, diarrhea, or constipation. Of note, the patient is currently being worked up for his pulmonary hypertension by Dr. Trejo, his night worker. He was in the cardiology clinic with increased shortness of breath, prompted Dr. Trejo to obtain routine labs, which showed a significantly decreased hemoglobin and hematocrit. He was subsequently admitted to the hospital for further evaluation of this low hemoglobin and hematocrit. REVIEW OF SYSTEMS: A 10-category review of systems was obtained with all responses negative except for the pertinent positives as listed in HPI. PAST MEDICAL HISTORY: As per HPI. PAST SURGICAL HISTORY: 1. Thyroidectomy. 2. Ablation for atrial fibrillation. 3. Amulet insertion into his left atrial appendage. FAMILY HISTORY: Denies any GI malignancies. SOCIAL HISTORY: Denies any tobacco or illicit drug use, but does drink approximately 2 to 3 beers per week. OUTPATIENT MEDICATIONS: Reviewed. ALLERGIES: NO KNOWN DRUG ALLERGIES. PHYSICAL EXAMINATION: VITAL SIGNS: Temperature 97.7, pulse 76, blood pressure 175/90, respiratory rate 18, and saturating 97% on room air. GENERAL: The patient was sitting on his bed at bedside, in no acute distress. No conversational dyspnea noted. Alert and oriented x4. HEENT: Normocephalic and atraumatic. No JVD or scleral icterus noted. CARDIOVASCULAR: Irregularly irregular rhythm with no discernable murmurs, gallops, or rubs. RESPIRATORY: Clear to auscultation bilaterally with no discernable wheezes or rales. ABDOMEN: Normoactive bowel sounds. Soft, nontender, and nondistended. EXTREMITIES: No cyanosis or clubbing. 1+/2+ bilateral lower extremity edema was seen, extending to just below the knees. LABORATORY DATA: CBC with a white blood cell count of 10.4, hemoglobin 6.9, hematocrit 23.5, and platelets 411. Chemistry with a sodium of 133, potassium 4.7, chloride 102, CO2 of 23, BUN 23, creatinine 1.29, and glucose 95. AST 22, ALT 18, alkaline phosphatase 80, and total bilirubin 0.9. IMAGING DATA: Chest x-ray was obtained on 02/21/2020, which showed progressive interstitial edema with vascular congestion and pleural effusion, consistent with possible congestive heart failure without evidence of confluent pneumonia. ASSESSMENT AND PLAN: The patient is a 69-year-old gentleman with past medical history of obstructive sleep apnea, hypertension, atrial fibrillation, hypothyroidism status post thyroidectomy, and recently pulmonary hypertension, presenting with anemia with CBC indices consistent with iron-deficiency anemia. Iron deficiency anemia: The patient is presenting with a recent diagnosis of pulmonary hypertension, for which the patient is currently undergoing cardiology workup with Dr. Trejo. However, more recently, the patient had a CBC done in the outpatient clinic, which showed a significantly decreased hemoglobin and hematocrit with low MCV and high RDW, concerning for iron-deficiency anemia. Unfortunately, iron indices are not available for review at this time to further characterize the anemia and the patient has received approximately 1 unit of packed red blood cells thus far, making any iron indices difficult to interpret at this time. He denies any overt gastrointestinal bleeding, but has had some darker colored stools earlier this year, which are concerning for possible bleeding in the gastrointestinal tract, but not necessarily pathognomonic. He also denies ever having had a screening colonoscopy before, but is considered average risk for the formation of colon cancer given his family history. At this time, the origin of his iron-deficiency anemia is relatively unknown, but could potentially be from a gastrointestinal origin. Differential could include esophagitis, gastritis, duodenitis, peptic ulcer disease, hiatal hernia with Jack ulcerations, arteriovenous malformation, Dieulafoy lesion, and/or gastrointestinal neoplasm. RECOMMENDATIONS: 1. Would continue to trend his hemoglobin and hematocrit and transfuse as necessary to maintain the hemoglobin and hematocrit of 7/21. 2. Continue to monitor clinically for signs of active GI bleeding. 3. Would hold any anticoagulation for the time being in light of possible GI bleeding. 4. Keep the patient n.p.o. today in anticipation of EGD and colonoscopy. 5. Encouraged finishing the GoLYTELY prep in anticipation of the colonoscopy. 6. Would avoid any NSAIDs for the time being. 7. Further recommendations to follow endoscopy. We will continue to follow. Please call with any questions. Job ID: [id number]
--- NOTE | 2020-02-22 14:21 | PDOC.HOSPP ---
- Subjective Encounter Date: 02/22/20 Encounter Time: 09:15 Subjective: pt up in bed no complains - Objective Vital Signs & Weight: Vital Signs (12 hours) Temp Pulse Resp BP BP BP Pulse Ox 02/22/20 12:45 98.9 F 73 18 143/83 H 97 02/22/20 10:07 76 175/90 H 02/22/20 09:50 97.7 F 76 18 175/90 H 97 02/22/20 08:01 98 02/22/20 07:54 98 F 76 18 146/77 H 96 02/22/20 07:40 96.8 F L 86 18 171/90 H 97 02/22/20 05:11 73 168/94 H 02/22/20 04:25 97.3 F L 73 17 168/94 H 92 L Weight Weight 205 lb I&O: 02/21/20 02/22/20 02/23/20 06:59 06:59 06:59 Intake Total 3150 350 Balance 3150 350 Result Diagrams: 02/22/20 05:17 02/22/20 05:17 Hospitalist ROS - Review of Systems Cardiovascular: denies: chest pain, palpitations, orthopnea, paroxysmal noc. dyspnea, edema, light headedness, other Gastrointestinal: denies: nausea, vomiting, abdominal pain, diarrhea, constipation, melena, hematochezia, other Genitourinary: denies: dysuria, frequency, incontinence, hematuria, retention, other - Medication Medications: Active Medications Generic Name Dose Route Start Last Admin Trade Name Freq PRN Reason Stop Dose Admin Atenolol 12.5 mg 02/21/20 18:26 02/22/20 10:07 Tenormin PO 12.5 mg DAILY PRN Administration SBP >160 Flecainide Acetate 50 mg 02/21/20 21:00 02/22/20 09:56 Tambocor PO Not Given BID IAM Levothyroxine Sodium 200 mcg 02/22/20 06:00 02/22/20 05:12 Synthroid PO 200 mcg 0600 IAM Administration Spironolactone 25 mg 02/22/20 09:00 02/22/20 09:56 Aldactone PO Not Given DAILY IAM - Exam Heart: negative: RRR, no murmur, no gallops, no rubs, normal peripheral pulses, irregular, diminshed peripheral pulses, murmur present, II/IV, III/IV Respiratory: negative: CTAB, no wheezes, no rales, no ronchi, normal chest expansion, no tachypnea, normal percussion, rales, rhonchi, tachypneic, wheezes Gastrointestinal: negative: soft, non-tender, non-distended, normal bowel sounds , no palpable masses, no hepatomegaly, no splenomegaly, no bruit, no guarding, no rigidity, tender to palpation, distended, diminished bowl sounds, voluntary guarding Extremities: negative: no cyanosis, no clubbing, no edema, 1+ LE edema, 2+ LE edema, clubbing Hosp A/P (1) Anemia Code(s): D64.9 - ANEMIA, UNSPECIFIED Status: Acute (2) Hypertension Code(s): I10 - ESSENTIAL (PRIMARY) HYPERTENSION Status: Chronic (3) Hypothyroidism Code(s): E03.9 - HYPOTHYROIDISM, UNSPECIFIED Status: Chronic (4) Shortness of breath Code(s): R06.02 - SHORTNESS OF BREATH Status: Acute - Plan pt was found to be anemic. He is only on ASA. per pt he does not take any NSAID. Never had colonoscopy. pt going for egd/colonoscopy. will hold his asa. He is in sinus will resume his meds.
[2020-02-22] MEDS ORDERED: Iopamidol 370 76% 100 ML VIAL ONE (14:35)
--- NOTE | 2020-02-22 15:03 | CT ---
EXAM: CT chest, abdomen, and pelvis with IV contrast: HISTORY: Large colonic/rectal mass. Anemia. History of aortic aneurysm. COMPARISON: CTA chest on 07/30/2019 and CTA chest and abdomen on 02/28/2019 FINDINGS: CT THORAX: Lungs: No consolidation, suspicious pulmonary nodule, or mass. Pleura: Small bilateral pleural effusions larger in size on the right with associated consolidation a t each lung base which is probably due to associated passive atelectasis. Lymph nodes: There is mild increase in number of mediastinal lymph nodes, but this is stable when com pared to prior studies in 2019. Mildly enlarged subcarinal lymph node is again present measuring 1.7 cm in short axis dimension. Mediastinum: Left subclavian cardiac pacemaking device is noted in place. Left atrial occlusion devic e is seen. Chest wall: No abnormalities CT ABDOMEN AND PELVIS: Liver: Normal CT appearance for arterial phase of imaging. No obvious hepatic lesion is seen. Gallbladder: Within normal limits. \ Pancreas: Within normal limits. Spleen: Within normal limits. Adrenal glands: Within normal limits. Kidneys: Subcentimeter too small to characterize hypodense lesion is seen in the superior pole left k idney. Kidneys otherwise demonstrate a normal CT appearance.. Urinary Bladder: The urinary bladder is unremarkable. Reproductive organs: Within normal limits for patient's age. Bowel: There is a large irregular mass with lobulated thickening of the figueroa of the distal sigmoid c olon and proximal rectum. Adenopathy:Enlarged lymph nodes are seen adjacent to the colonic mass just to the left of the mass me asuring 1.2 cm and 1.1 cm respectively. Additional smaller lymph nodes are also present. There are mild increase in number of left para-aortic lymph nodes although no enlarged lymph nodes seen by CT s ize criteria. Largest left para-aortic lymph node measures 1 cm in short axis dimension. Peritoneum: No free fluid or fluid collection is seen. No free intraperitoneal gas is identified. Abdominal wall: No abnormalities seen. Surgical clips are seen in the left scrotum partially imaged. Osseous structures: No suspicious lytic or sclerotic osseous lesions are identified. IMPRESSION: 1. Large mass involving the distal sigmoid colon and proximal rectum with the mass extending into the adjacent pelvic fat. Adjacent lymphadenopathy is present, and there is increased number of left para-aortic lymph nodes. 2. Small bilateral pleural effusions. 3. Mild increased number of mediastinal lymph nodes, but this is stable compared to prior studies in 2019.
[2020-02-22] MEDS ORDERED: Erythromycin Base 250 MG TAB PO SCH (15:15)
[2020-02-22] MEDS ORDERED: cefOXitin 2 GM in Sodium Chloride 0.9% 100 ML IVPB SCH (15:15)
--- NOTE | 2020-02-22 15:36 | OP ---
DATE OF PROCEDURE: 02/22/2020 PROCEDURES PERFORMED: 1. Esophagogastroduodenoscopy with biopsy. 2. Colonoscopy with biopsy and submucosal injection/tattoo placement. INDICATIONS FOR PROCEDURE: Iron-deficiency anemia. DESCRIPTION OF PROCEDURE: After the risks and benefits of the procedures were explained to the patient including risks of bleeding, infection, perforation, reactions to anesthesia, aspiration, and/or pain, informed consent was obtained. The patient was then taken to the endoscopy suite where he was maneuvered into the left lateral decubitus position followed by introduction of deep sedation with propofol via anesthesia support. Once the patient was adequately sedated, the standard gastroscope was introduced into the mouth with intubation of the esophagus, stomach, and the proximal small intestines with the findings listed below. On conclusion of this portion of the procedure, all equipment was removed from the patient and the bed was rotated 180 degrees in anticipation of the colonoscopy. A digital rectal examination was performed followed by introduction of the standard colonoscope, which was advanced to approximately 15 to 17 cm past the anal verge, at which point further progression was halted due to a large near obstructive colonic mass, that was unable to be traversed with the colonoscope. The quality of the prep was good. The patient tolerated this portion of the procedure well with no immediate perioperative complications. On conclusion of the procedure, all equipment was removed from the patient and he was transferred to PACU in satisfactory condition. EGD FINDINGS: Esophagus: Normal-appearing mucosa was seen in the proximal, mid, and distal esophagus. There was no evidence of erosions, ulcerations, mass lesions, or active/recent bleeding. Stomach: Normal-appearing mucosa was seen in the gastric cardia, fundus, body, greater curvature, and incisura. However, 2 small clean-based non-cratered ulcerations, measuring 2 to 3 mm, in size were seen in the gastric antrum with no evidence of active or recent bleeding. Multiple biopsies were taken from these ulcerations and placed in a specimen jar for further evaluation. Duodenum: Normal-appearing mucosa was seen in both the duodenal bulb and second portion of the duodenum. There was no evidence of erosions, ulcerations, mass lesions, or active/recent bleeding. Random biopsies were taken from both the bulb and the second portion for evaluation of possible celiac sprue. COLONOSCOPY FINDINGS: Digital rectal examination: Large external hemorrhoids were seen on external examination, but were nonbleeding in nature. No masses palpated. Colon findings: The colonoscope was advanced to approximately 17 cm past the anal verge, at which point further progression was impeded due to a large near obstructive colonic mass, that was unable to be traversed with the colonoscope itself. The distal portion of the mass was at approximately 15 cm past the anal verge. Multiple biopsies were then taken from the mass and placed in a specimen jar for further evaluation. Submucosal injection was then performed with Spot/ ink with tattoos placed in a four-quadrant fashion for future reference. The remainder of the rectum appeared normal with small internal hemorrhoids seen on rectal retroflexion. IMPRESSION: 1. A large near obstructive colonic mass seen at 15 to 17 cm past the anal verge, consistent with colonic adenocarcinoma. 2. Small internal and large external hemorrhoids (both nonbleeding). RECOMMENDATIONS: 1. We would continue to trend the patient's hemoglobin and hematocrit and transfuse as necessary to maintain the hemoglobin and hematocrit of 7/21. 2. Continue to monitor clinically for signs of active GI bleeding. 3. Would follow up on biopsy results today with special attention to the rectal mass biopsy. 4. Would obtain staging imaging including CT of the abdomen and pelvis and chest for determination of possible metastatic disease. 5. Would consult General Surgery Service in relation to this patient given the near obstructive colonic mass. 6. The patient will need repeat colonoscopy in 6 to 12 months after surgical resection for evaluation of the entire colon. 7. Would hold on any anticoagulation at this time given the biopsies obtained today and the rectal mass seen during the examination. We will continue to follow. Please call with any questions. Job ID: [id number]
--- NOTE | 2020-02-22 18:09 | PDOC.GSPN ---
Surgery Progress Note: Subj - Subjective Narrative: Patient is feeling good today. She is tolerating her GI soft diet. No abdominal pain nausea or vomiting. She has passed gas but has not had a bowel movement yet. Her incisions look great. No evidence of hernia recurrence. She is ready for discharge from a surgical standpoint. She is to follow-up in my clinic in 3 weeks time. She is to refrain from heavy lifting or straining for the next 2 weeks. Surgery Progress Note: Obj - Vital signs Vital signs: Vital Signs - Most Recent Temp Pulse Resp BP Pulse Ox 98.4 F 76 16 169/88 H 99 02/22/20 15:26 02/22/20 15:26 02/22/20 15:26 02/22/20 15:26 02/22/20 15:26 Surgery Progress Note: Results - Labs Result Diagrams: 02/22/20 05:17 02/22/20 05:17 Lab results: Laboratory Results - last 24 hr 02/21/20 02/21/20 02/22/20 15:33 15:33 05:17 WBC 10.4 RBC 3.69 L Hgb 6.9 L Hct 23.5 L MCV 63.8 L MCH 18.8 L MCHC 29.5 L RDW 21.3 H Plt Count 411 H MPV 11.4 H Neutrophils % (Manual) 70 Band Neuts % (Manual) 2 L Lymphocytes % (Manual) 16 L Monocytes % (Manual) 8 Eosinophils % (Manual) 4 Plt Morphology Comment Appears Increased H Smear Path Review Blood Type A POSITIVE Antibody Screen NEGATIVE Crossmatch See Detail
[2020-02-22 19:52] LABS: Band 7 % (5-11); Hemoglobin 8.4 g/dL (14.0-18.0); Lymphocytes 20 % (21-51); MDiff Complete? YES; Mean Corpuscular HGB CONC 30.9 g/dL (32.0-36.0); Mean Corpuscular Hemoglobin 20.3 pg (27.0-31.0); Mean Corpuscular Volume 65.6 fL (78.0-98.0); Mean Platelet Volume 11.4 fL (7.4-10.4); Monocytes 16 % (0-10); Neutrophil 57 % (42-75); Platelet Count 456 thou/uL (130-400); Platelet Morphology Comment Appears Adequate; RBC Distribution Width 23.1 % (11.5-14.5); Red Blood Cell (RBC) Count 4.15 mill/uL (4.70-6.10); White Blood Cell (WBC) Count 11.5 thou/uL (4.8-10.8)
[2020-02-22] MEDS ORDERED: Magnesium Citrate 300 ML BOT PO SCH (21:00)
--- NOTE | 2020-02-23 00:59 | CON ---
DATE OF CONSULTATION: REASON FOR CONSULT: Near obstructing colon mass. HISTORY OF PRESENT ILLNESS: Mr. Desai is a 69-year-old man with a history of pulmonary hypertension, right heart failure, managed by Dr. Trejo. He was seen in Dr. Trejo's clinic and was significantly more short of breath than his baseline. He explained to Dr. Trejo that he had recently been found to be anemic and was placed on iron and vitamins, but Dr. Trejo was concerned that he was at high risk for decompensation of his heart failure and asked that he be admitted to the hospital for transfusion and workup of his anemia. He is feeling better since receiving blood product and his shortness of breath has basically resolved. He underwent an EGD and colonoscopy today by Dr. Akhtar of GI. He was found to have some insignificant appearing gastric ulcers, which were biopsied, but a large near obstructing mass, 15 cm from the anal verge with the appearance typical for an adenocarcinoma. Multiple biopsies were sent, but pathology will not return until Tuesday. The patient had a CT of the abdomen and pelvis ordered by Dr. Akhtar, which confirmed a large irregular mass in the distal sigmoid colon and proximal rectum with some enlarged lymph nodes just adjacent to the mass, but the patient denies any history of nausea, vomiting, or bloating. He has been eating normally and having normal bowel movements. However, Dr. Akhtar was unable to pass the scope through the mass and into the proximal colon. On CT, the proximal colon does not appear distended or obstructed. CEA has been ordered, but is pending. PAST MEDICAL HISTORY: Pulmonary hypertension, right heart failure. Dr. Trejo did a heart catheterization on him six months ago, which did not show any significant vascular disease. He is concerned about a possibility of amyloidosis or sarcoidosis. PAST SURGICAL HISTORY: No abdominal surgery. He did have a pacemaker in place and a procedure to close his left atrial appendage. FAMILY HISTORY: Noncontributory. His father has some sort of cancer, but he is unsure whether this was prostate or colon cancer. He states that when they tried to treat, his father because of underlying liver disease. SOCIAL HISTORY: The patient is still working. Does not smoke, drink, or use illicit drugs except occasionally he will have a glass of wine or some [place] on the [place]. REVIEW OF SYSTEMS: Ten system review of systems is negative except per HPI. He states that he had a couple episodes of blood in his stool, but none recently. He denies constipation, diarrhea, or change in the caliber of the stool. PHYSICAL EXAMINATION: VITAL SIGNS: The patient is afebrile. Heart rate 76, respirations 16, 99% saturated on room air, and blood pressure 169/88. GENERAL: Reveals a healthy-appearing man, in no acute distress. He is not flushed or toxic, jaundiced or icteric. HEENT: Unremarkable. NECK: Supple without lymphadenopathy or thyroid nodules. HEART: Regular in its rate and rhythm without murmurs, rubs, or gallops. LUNGS: Clear to auscultation bilaterally. ABDOMEN: Soft, nontender, and nondistended. No palpable masses or hernias. EXTREMITIES: Warm and well perfused. He does have 2+ pitting edema in both lower extremities, which he states is chronic. NEUROLOGIC: No focal deficits. PSYCHIATRIC: Alert, oriented, and appropriate. LABORATORY DATA: White count is 10.4, hemoglobin 6.9, but he has been transfused an additional unit of packed cells since that time. Sodium slightly low at 133. Other electrolytes are normal. BUN and creatinine were mildly elevated at 26 and 1.66 when he was admitted, but have come down to 23 [address] 1[address] images are reviewed and I agree with the written report. No evidence of osseous or hepatic metastasis. ASSESSMENT: Large near obstructing tumor at the rectosigmoid junction. From the endoscopy report, I was expecting this to be a distal sigmoid cancer, but based on the CT, I believe it is a proximal rectal cancer. He has some pelvic adenopathy in the perirectal space, which is concerning and would benefit from preoperative radiation therapy. He is at risk for obstructing, but does not have any obstructive symptoms, so I am going to ask Radiation Oncology and Oncology to see him first rather than proceeding with urgent resection and possible ostomy. His CEA is pending, but he does not have any obvious evidence of metastatic disease on CT. The PET might be helpful and a rectal MRI might be helpful as well to further stage of cancer. At this point, I will wait for Oncology and Radiation Oncology input before finalizing a plan of care, but if he remains asymptomatic from an obstructive standpoint and we were able to maintain his hematocrit, I would favor neoadjuvant treatment before surgery. If he continues to bleed, then resection may be necessary, but there is no history of rapid blood loss and as recently as May of last year, his hemoglobin was 12. Job ID: [id number]
[2020-02-23] MEDS: Levothyroxine Sodium 100 MCG TAB PO SCH (05:04)
[2020-02-23 07:00] LABS: Anion Gap 13 mmol/L (10-20); BUN (Urea Nitrogen) 17 mg/dL (8.4-25.7); Calc. Creatinine Clearance 73 mL/min (70-130); Carbon Dioxide 24 mmol/L (23-31); Chloride 102 mmol/L (98-107); Estimated GFR-MDRD 56; Glucose 83 mg/dL (80-115); Potassium 4.5 mmol/L (3.5-5.1); Sodium 134 mmol/L (136-145)
[2020-02-23 07:02] LABS: Band 7 % (5-11); Eosinophils 11 % (0-10); Hemoglobin 8.9 g/dL (14.0-18.0); Lymphocytes 12 % (21-51); MDiff Complete? YES; Mean Corpuscular HGB CONC 30.9 g/dL (32.0-36.0); Mean Corpuscular Hemoglobin 21.1 pg (27.0-31.0); Mean Corpuscular Volume 68.2 fL (78.0-98.0); Mean Platelet Volume 11.8 fL (7.4-10.4); Monocytes 15 % (0-10); Neutrophil 55 % (42-75); Platelet Count 398 thou/uL (130-400); Platelet Morphology Comment Appears Adequate; Red Blood Cell (RBC) Count 4.22 mill/uL (4.70-6.10); White Blood Cell (WBC) Count 9.7 thou/uL (4.8-10.8)
[2020-02-23] MEDS: Flecainide 50 MG TAB PO SCH (08:55)
[2020-02-23] MEDS: Spironolactone 25 MG TAB PO SCH (08:55)
[2020-02-23] MEDS: Atenolol 25 MG TAB PO PRN (09:05)
--- NOTE | 2020-02-23 09:08 | PDOC.GSPN ---
Surgery Progress Note: Subj - Subjective Narrative: Patient feels good. Hungry. Passing gas, no nausea. Diet advanced to GI soft. No mediport per Oncology. Plan outpatient followup for chemotherapy and radiation. Needs completion colonoscopy after neoadjuvant treatment then low anterior resection. Receiving one more unit PRBCs this AM then DC home. RTC Surgery 1 month for followup, call for urgent appointment if bloating, nausea/ vomiting, bloody stool or recurrent weakness/dyspnea. Surgery Progress Note: Obj - Vital signs Vital signs: Vital Signs - Most Recent Temp Pulse Resp BP Pulse Ox 97.9 F 80 17 173/93 H 95 02/23/20 07:21 02/23/20 07:21 02/23/20 07:21 02/23/20 07:21 02/23/20 07:21 Surgery Progress Note: Results - Labs Result Diagrams: 02/23/20 06:08 02/23/20 06:08 Lab results: Laboratory Results - last 24 hr 02/21/20 02/23/20 02/23/20 15:33 06:08 06:08 WBC RBC Hgb Hct MCV MCH MCHC RDW Plt Count MPV Neutrophils % (Manual) Band Neuts % (Manual) Lymphocytes % (Manual) Monocytes % (Manual) Eosinophils % (Manual) Plt Morphology Comment Sodium 134 L Potassium 4.5 Chloride 102 Carbon Dioxide 24 Anion Gap 13 BUN 17 Creatinine 1.28 Estimated GFR (MDRD) 56 Glucose 83 Calcium 9.0 Carcinoembryonic Ag 255.47 H Blood Type A POSITIVE Antibody Screen NEGATIVE Crossmatch See Detail 02/23/20 06:08 WBC 9.7 RBC 4.22 L Hgb 8.9 L Hct 28.8 L MCV 68.2 L MCH 21.1 L MCHC 30.9 L RDW 25.0 H Plt Count 398 MPV 11.8 H Neutrophils % (Manual) 55 Band Neuts % (Manual) 7 Lymphocytes % (Manual) 12 L Monocytes % (Manual) 15 H Eosinophils % (Manual) 11 H Plt Morphology Comment Appears Adequate Sodium Potassium Chloride Carbon Dioxide Anion Gap BUN Creatinine Estimated GFR (MDRD) Glucose Calcium Carcinoembryonic Ag Blood Type Antibody Screen Crossmatch
[2020-02-23] MEDS ORDERED: Atenolol 25 MG TAB PO PRN (09:13)
[2020-02-23 15:12] VITALS: BP 154/87; TEMP 97.7
--- NOTE | 2020-02-23 20:27 | DIS ---
DATE OF ADMISSION: 02/21/2020 DATE OF DISCHARGE: 02/23/2020 DISCHARGE DIAGNOSES: As of the following. 1. Shortness of breath. 2. Acute blood loss anemia. 3. Atrial fibrillation, rate controlled, sinus rhythm currently, status post left atrial Amulet. 4. Aortic aneurysm. 5. 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 HOSPITAL COURSE: The patient is a very pleasant 69-year-old male, who initially presented to the hospital with worsening shortness of breath. At this time, he was found to be significantly anemic. He was given blood transfusions. Cardiology was consulted given his history of aortic aneurysm, concerns for pulmonary hypertension and also history of AFib. The patient, at this time, was also seen by GI and underwent an EGD and colonoscopy. The patient's EGD indicated normal-appearing mucosa in the proximal mid and distal esophagus with no evidence of erosion, ulceration, mass lesions, or active bleeding. However, he did have 2 small clean-based non-cratered ulcerations in his stomach with no active bleeding noted. However, on the colonoscopy, he had a large external hemorrhoid and he had a large near obstructive colonic mass, 15 to 17 cm past the anal verge consistent with colon adenocarcinoma. At this time, biopsies were obtained and Surgery was consulted. The patient underwent a CT chest, abdomen, and pelvis, which indicated that he had a large mass involving the distal sigmoid colon and proximal rectum with a mass extending into the adjacent pelvic fat, adjacent lymphadenopathy, small bilateral pleural effusions, mild increased numbers of mediastinal lymphadenopathy, and also paraaortic lymph node enlargement was noted. The patient, at this time was transfused a total of 4 units of PRBC. He was then discharged home. He will follow up with his primary care doctor on Tuesday and he has been provided numbers for Hematology and Oncology. I did speak with the surgeon who notified me that she had discussed this case with the oncologist and the radiation oncologist. The patient has been provided with both numbers and had been asked to call them to follow up as an outpatient. During the hospital stay, patient had some mildly elevated blood pressure. I have told him that he could increase his atenolol to 25 mg as needed. He is very good about keeping a record of his blood pressures. His home medications will be spironolactone 25 mg daily, levothyroxine 200 mcg daily, flecainide 50 mg twice a day, and atenolol 25 mg as needed. Aspirin is on hold. PHYSICAL EXAMINATION: VITAL SIGNS: Temperature of 97.7, 80, 16, 94, 127/76. GENERAL: He is awake, alert, and oriented x3. Does not appear in distress. CV: S1 and S2 present. No murmurs, rubs, or gallops. ABDOMEN: Soft, nontender. Bowel sounds are present x2. Again, patient will be discharged home. He will follow up with Primary, Hematology, and Radiation Oncology. Job ID: [id number]
== END 2020-02-23 15:56 | disposition home or self-care (01) | DRG 812 ==
LOC: ERS 14:36 → T4-B 16:28 → OBSVTOIN 18:22
PROVIDERS: ADMIT Internal Medicine; ATTEND Internal Medicine
PROC: 30233N1 Transfusion of Nonautologous Red Blood Cells into Peripheral Vein, Percutaneous Approach (ICD-10-PCS; 2020-02-21)
PROC: 0DB78ZX Excision of Stomach, Pylorus, Via Natural or Artificial Opening Endoscopic, Diagnostic (ICD-10-PCS; principal; 2020-02-22)
PROC: 0DBP8ZX Excision of Rectum, Via Natural or Artificial Opening Endoscopic, Diagnostic (ICD-10-PCS; 2020-02-22)
PROC: 0DB88ZX Excision of Small Intestine, Via Natural or Artificial Opening Endoscopic, Diagnostic (ICD-10-PCS; 2020-02-22)
DX: D62 Acute posthemorrhagic anemia (principal); C19 Malignant neoplasm of rectosigmoid junction; J90 Pleural effusion, not elsewhere classified; I48.91 Unspecified atrial fibrillation; E03.9 Hypothyroidism, unspecified; I12.9 Hypertensive chronic kidney disease with stage 1 through stage 4 chronic kidney disease, or unspecified chronic kidney disease; N18.9 Chronic kidney disease, unspecified; I27.20 Pulmonary hypertension, unspecified; K64.4 Residual hemorrhoidal skin tags; G47.33 Obstructive sleep apnea (adult) (pediatric); R59.1 Generalized enlarged lymph nodes; K25.9 Gastric ulcer, unspecified as acute or chronic, without hemorrhage or perforation; I71.9 Aortic aneurysm of unspecified site, without rupture; Z79.01 Long term (current) use of anticoagulants; Z95.0 Presence of cardiac pacemaker; Z87.891 Personal history of nicotine dependence; Z86.73 Personal history of transient ischemic attack (TIA), and cerebral infarction without residual deficits
CPT/HCPCS: 36415; 36430; 71046; 71260; 74177; 78451; 80048; 80053; 82274; 82378; 85025; 85060; 86850; 86900; 86901; 88305; 88312; 93005; 94760; A9540; G0378; J0360; J2704; P9016; Q9967

== ENCOUNTER 2020-03-04 10:27 | Outpatient (CLI) | payer MEDICARE ==
--- NOTE | 2020-03-04 14:11 | PET ---
PET CT: HISTORY: A 69-year-old male with rectal cancer (invasive well to moderately differentiated adenocarcinoma). E xam requested for initial staging. TECHNIQUE: PET scan with CT attenuation correction was performed from the base of the brain through the proximal thighs following the intravenous administration of 13 mCi [id number] in the left hand. COMPARISON: None. CORRELATION: CT chest, abdomen, and pelvis dated 02/22/2020. FINDINGS: There is intense uptake in the rectosigmoid mass with an SUV of 18. An adjacent hypermetabolic 12 mm left mesorectal pelvic lymph node is seen with an SUV of 5.7. No magui hypermetabolism is seen in the neck, chest, or abdomen. No hypermetabolic pulmonary nodules , liver, adrenal, or skeletal lesions are seen. There is physiologic activity in the GI and tracts, heart, and the visualized portions of the brai n. The CT scan used for attenuation correction demonstrates no evidence of pleural effusions or ascites. The previously noted pleural effusions have resolved in the interim. IMPRESSION: Rectosigmoid malignancy with left mesorectal pelvic lymph magui metastasis. POS: ARNOLDO
== END 2020-03-04 10:28 | disposition home or self-care (01) ==
LOC: PET 10:27
PROVIDERS: ATTEND Internal Medicine Hematology & Oncology
DX: C19 Malignant neoplasm of rectosigmoid junction (principal); C77.5 Secondary and unspecified malignant neoplasm of intrapelvic lymph nodes
CPT/HCPCS: 78815; A9552

== ENCOUNTER 2020-11-12 19:40 | Inpatient (IN) | payer MEDICARE ==
[~2020-11-12 19:40] MED LIST changes: -Iopamidol 370 76% 50 ML VIAL FS ONE; +Iopamidol-370 76% 500 ML 1 ML ONE; -PROPOFOL 200 MG/20 ML VIAL ONE
[2020-11-12 20:04] LABS: #Eosinphils 0.2 thou/uL (0.0-0.7); #Monocytes 0.9 thou/uL (0.11-0.59); #Neutrophils 4.5 thou/uL (1.40-6.50); %Basophils 0.3 % (0.0-1.0); %Eosinophils 2.5 % (0.0-10.0); %Lymphocytes 14.4 % (21.0-51.0); %Monocytes 14.2 % (0.0-10.0); %Neutrophils 68.6 % (42.0-75.0); Hemoglobin 12.3 g/dL (14.0-18.0); Mean Corpuscular HGB CONC 32.4 g/dL (32.0-36.0); Mean Corpuscular Volume 89.5 fL (78.0-98.0); Mean Platelet Volume 7.5 fL (7.4-10.4); Platelet Count 283 thou/uL (130-400); RBC Distribution Width 13.8 % (11.5-14.5); Red Blood Cell (RBC) Count 4.25 mill/uL (4.70-6.10); White Blood Cell (WBC) Count 6.6 thou/uL (4.8-10.8)
[2020-11-12 20:30] LABS: ALT (SGPT) 14 U/L (8-55); AST (SGOT) 16 U/L (5-34); Alkaline Phosphatase 71 U/L (40-110); Anion Gap 12 mmol/L (10-20); BUN (Urea Nitrogen) 25 mg/dL (8.4-25.7); Calc. Creatinine Clearance 0 mL/min (70-130); Calcium 8.9 mg/dL (7.8-10.44); Carbon Dioxide 29 mmol/L (23-31); Chloride 101 mmol/L (98-107); Globulin 3.5 g/dL (2.4-3.5); Glucose 93 mg/dL (80-115); Lipase 12 U/L (8-78); Protein, Total 7.5 g/dL (5.8-8.1); Sodium 138 mmol/L (136-145)
[2020-11-12] MEDS ORDERED: Milk Of Magnesia 30 ML UDCUP ONE ×2 (22:51)
[2020-11-12] MEDS ORDERED: Ondansetron PF 4 MG/2 ML Vial ONE (23:04)
[2020-11-12] MEDS ORDERED: Ondansetron ODT 8 MG TAB ONE (23:11)
[2020-11-12 23:18] LABS: Bilirubin Negative (Negative); Blood, Urine 2+ (Negative); Clarity Clear (Clear); Glucose, Urine (Dipstick) Normal (Negative); Ketone, Urine 40 mg/dL (Negative); Leukocyte 500 Leu/uL (Negative); Nitrite Negative (Negative); Protein, Urine (Dipstick) 20 mg/dL (Neg-Trace); RBC/HPF 21-50 HPF (0-3); Squamous Epithelial 0-3 HPF (0-3); Urobilinogen Normal mg/dL (Less than 2); WBC/HPF Greater than 50 HPF (0-3); pH, Urine 5.5 (5.0-9.0)
[2020-11-12 23:23] LABS: Bacteria/HPF 1+ HPF (None Seen)
[2020-11-13] MEDS ORDERED: Piperacillin/Tazobactam 4.5 GM VIAL ONE (00:10)
[2020-11-13] MEDS ORDERED: Morphine 4 MG/ML VIAL ONE (00:13)
[2020-11-13] MEDS ORDERED: Acetaminophen 325 MG TAB PO PRN ×2 (02:00→23:59)
[2020-11-13] MEDS ORDERED: Ondansetron ODT 4 MG TAB SL PRN (02:00)
[2020-11-13] MEDS ORDERED: Ondansetron PF 4 MG/2 ML Vial IVP PRN (02:00)
[2020-11-13 02:05] VITALS: BMI 28.5
[2020-11-13] MEDS: Lactated Ringer's 1,000 ML IV SCH ×2 (02:44→09:55)
[2020-11-13 04:46] LABS: Hemoglobin 11.1 g/dL (14.0-18.0); Mean Corpuscular HGB CONC 32.3 g/dL (32.0-36.0); Mean Corpuscular Hemoglobin 29.1 pg (27.0-31.0); Mean Corpuscular Volume 90.2 fL (78.0-98.0); Mean Platelet Volume 7.2 fL (7.4-10.4); Platelet Count 239 thou/uL (130-400); RBC Distribution Width 13.7 % (11.5-14.5); Red Blood Cell (RBC) Count 3.83 mill/uL (4.70-6.10); White Blood Cell (WBC) Count 5.6 thou/uL (4.8-10.8)
[2020-11-13] MEDS: Piperacillin/Tazobactam 4.5 GM in Sodium Chloride 0.9% 100 ML IVPB SCH ×3 (04:48→23:56)
[2020-11-13 05:14] LABS: Anion Gap 13 mmol/L (10-20); BUN (Urea Nitrogen) 22 mg/dL (8.4-25.7); Calc. Creatinine Clearance 102 mL/min (70-130); Calcium 7.9 mg/dL (7.8-10.44); Carbon Dioxide 23 mmol/L (23-31); Chloride 105 mmol/L (98-107); Glucose 103 mg/dL (80-115); Potassium 3.7 mmol/L (3.5-5.1); Sodium 137 mmol/L (136-145)
[2020-11-13 05:22] LABS: Band 6 % (5-11); Lymphocytes 10 % (21-51); MDiff Complete? YES; Monocytes 9 % (0-10); Neutrophil 75 % (42-75)
[2020-11-13] MEDS: Morphine 2 MG/ML VIAL SLOW IVP PRN ×3 (10:15→23:45)
[2020-11-13] MEDS ORDERED: cefOXitin 2 GM in Sodium Chloride 0.9% 100 ML IVPB SCH (13:30)
[2020-11-13] MEDS ORDERED: Flecainide 50 MG TAB PO SCH (15:15)
[2020-11-13] MEDS ORDERED: Atenolol 25 MG TAB PO SCH (15:15)
[2020-11-13 15:58] LABS: SARS-CoV-2 NAA Rapid Test Not Detected (NotDetected)
[2020-11-13] MEDS ORDERED: Bupivacaine 0.25% HCL 30 ML VIAL ONE (19:03)
[2020-11-13] MEDS ORDERED: Lidocaine 1% w/Epinephrine 1:100K 20 ML VIAL ONE (19:03)
[2020-11-13] MEDS ORDERED: Ondansetron HCl/PF 4 MG/2 ML Vial IVP PRN ×2 (19:06→22:32)
[2020-11-13] MEDS ORDERED: Fentanyl 100 MCG/2 ML VIAL ONE ×2 (19:18→19:43)
[2020-11-13] MEDS ORDERED: cefOXitin Sodium/Dextrose 2 GM/50 ML BAG ONE (19:37)
[2020-11-13] MEDS ORDERED: Succinylcholine 200 MG/10 ml SYRINGE FS ONE (20:13)
[2020-11-13] MEDS ORDERED: PROPOFOL 200 MG/20 ML VIAL ONE (20:13)
[2020-11-13] MEDS ORDERED: Glycopyrrolate 0.2 MG/ML 5 ML SYRINGE ONE (20:13)
[2020-11-13] MEDS ORDERED: Ondansetron PF 4 MG/2 ML Vial ONE (20:13)
[2020-11-13] MEDS ORDERED: PHENYLEPHRINE-NS 100 MCG/ML 10 ML SYRINGE ONE (20:13)
[2020-11-13] MEDS ORDERED: Dexamethasone 20 MG/5 ML VIAL ONE (20:13)
[2020-11-13] MEDS ORDERED: Rocuronium Bromide 10 MG/ML (10ML VIAL) ONE (20:13)
[2020-11-13] MEDS ORDERED: Lidocaine 1% PF 5 ML VIAL ONE (20:13)
[2020-11-13] MEDS ORDERED: Promethazine HCl 25 MG/ML VIAL IM PRN ×2 (22:32→23:00)
[2020-11-13] MEDS ORDERED: Promethazine HCl 25 MG/ML VIAL SLOW IVP PRN ×2 (22:32→23:00)
[2020-11-13] MEDS: Flecainide 50 MG TAB PO SCH (23:55)
[2020-11-13] MEDS: Atenolol 25 MG TAB PO SCH (23:55)
[2020-11-13] MEDS: Enoxaparin Sodium 40 MG/0.4 ML SYRINGE SC SCH (23:55)
[2020-11-13] MEDS ORDERED: HYDROcodone/Acetaminophen 5/325 mg Tablet PO PRN (23:59)
[2020-11-14 05:19] LABS: #Lymphocytes 0.5 thou/uL (1.20-3.40); #Monocytes 0.7 thou/uL (0.11-0.59); #Neutrophils 5.9 thou/uL (1.40-6.50); %Basophils 0.1 % (0.0-1.0); %Eosinophils 0.2 % (0.0-10.0); %Lymphocytes 7.2 % (21.0-51.0); %Monocytes 9.8 % (0.0-10.0); %Neutrophils 82.6 % (42.0-75.0); Hemoglobin 10.8 g/dL (14.0-18.0); Mean Corpuscular HGB CONC 33.6 g/dL (32.0-36.0); Mean Corpuscular Hemoglobin 30.5 pg (27.0-31.0); Mean Corpuscular Volume 90.5 fL (78.0-98.0); Mean Platelet Volume 7.5 fL (7.4-10.4); Platelet Count 225 thou/uL (130-400); RBC Distribution Width 13.7 % (11.5-14.5); Red Blood Cell (RBC) Count 3.55 mill/uL (4.70-6.10); White Blood Cell (WBC) Count 7.1 thou/uL (4.8-10.8)
[2020-11-14] MEDS: Piperacillin/Tazobactam 4.5 GM in Sodium Chloride 0.9% 100 ML IVPB SCH ×3 (05:35→22:54)
[2020-11-14] MEDS: Levothyroxine Sodium 100 MCG TAB PO SCH (05:35)
[2020-11-14 05:41] LABS: Anion Gap 12 mmol/L (10-20); BUN (Urea Nitrogen) 22 mg/dL (8.4-25.7); Calc. Creatinine Clearance 93 mL/min (70-130); Calcium 7.8 mg/dL (7.8-10.44); Carbon Dioxide 24 mmol/L (23-31); Chloride 107 mmol/L (98-107); Glucose 124 mg/dL (80-115); Potassium 3.9 mmol/L (3.5-5.1); Sodium 139 mmol/L (136-145)
[2020-11-14] MEDS: Flecainide 50 MG TAB PO SCH ×2 (09:38→20:08)
[2020-11-14] MEDS: Atenolol 25 MG TAB PO SCH ×2 (09:38→20:08)
[2020-11-14] MEDS: HYDROcodone/Acetaminophen 5/325 mg Tablet PO PRN (10:14)
[2020-11-14] MEDS: Acetaminophen 325 MG TAB PO PRN (19:26)
[2020-11-14] MEDS: Enoxaparin Sodium 40 MG/0.4 ML SYRINGE SC SCH (20:08)
[2020-11-15] MEDS: Acetaminophen 325 MG TAB PO PRN (03:19)
[2020-11-15] MEDS: Levothyroxine Sodium 100 MCG TAB PO SCH (04:53)
[2020-11-15] MEDS: Piperacillin/Tazobactam 4.5 GM in Sodium Chloride 0.9% 100 ML IVPB SCH (04:53)
[2020-11-15] MEDS: HYDROcodone/Acetaminophen 5/325 mg Tablet PO PRN (08:38)
[2020-11-15] MEDS: Atenolol 25 MG TAB PO SCH (08:38)
[2020-11-15] MEDS: Flecainide 50 MG TAB PO SCH (08:39)
[2020-11-15 12:20] VITALS: BP 115/72; TEMP 98
== END 2020-11-15 14:00 | disposition home health service (06) | DRG 330 ==
LOC: ERS 19:40 → SURG A 11-13 00:39
PROVIDERS: ADMIT Student in an Organized Health Care Education/Training Program; ATTEND Family Medicine
PROC: 0D1N4Z4 Bypass Sigmoid Colon to Cutaneous, Percutaneous Endoscopic Approach (ICD-10-PCS; principal; 2020-11-13)
PROC: 0DBU4ZX Excision of Omentum, Percutaneous Endoscopic Approach, Diagnostic (ICD-10-PCS; 2020-11-13)
DX: C20 Malignant neoplasm of rectum (principal); N39.0 Urinary tract infection, site not specified; N32.1 Vesicointestinal fistula; C79.11 Secondary malignant neoplasm of bladder; K56.609 Unspecified intestinal obstruction, unspecified as to partial versus complete obstruction; I48.20 Chronic atrial fibrillation, unspecified; Z92.3 Personal history of irradiation; Z86.73 Personal history of transient ischemic attack (TIA), and cerebral infarction without residual deficits; Z79.899 Other long term (current) drug therapy; Z95.0 Presence of cardiac pacemaker; K52.9 Noninfective gastroenteritis and colitis, unspecified; I25.10 Atherosclerotic heart disease of native coronary artery without angina pectoris; Z80.0 Family history of malignant neoplasm of digestive organs; I11.0 Hypertensive heart disease with heart failure; I50.812 Chronic right heart failure
CPT/HCPCS: 36415; 74177; 80048; 80053; 81003; 81015; 83605; 83690; 85025; 87040; 87086; 88112; 88305; 88313; 96365; 96375; J0694; J1100; J1650; J2270; J2405; J2543; J2704; J3010; J3490; Q0162; Q9967; S0020; U0002

== ENCOUNTER 2021-01-03 15:21 | Inpatient (IN) | payer MEDICARE ==
[2021-01-03 16:11] LABS: Hemoglobin 10.6 g/dL (14.0-18.0); Mean Corpuscular HGB CONC 32.6 g/dL (32.0-36.0); Mean Corpuscular Hemoglobin 28.7 pg (27.0-31.0); Mean Corpuscular Volume 87.8 fL (78.0-98.0); Mean Platelet Volume 6.7 fL (7.4-10.4); Platelet Count 389 thou/uL (130-400); Red Blood Cell (RBC) Count 3.68 mill/uL (4.70-6.10)
[2021-01-03 16:33] LABS: ALT (SGPT) Less than 7 U/L (8-55); AST (SGOT) 12 U/L (5-34); Albumin 3.6 g/dL (3.4-4.8); Alkaline Phosphatase 111 U/L (40-110); Anion Gap 13 mmol/L (10-20); BUN (Urea Nitrogen) 24 mg/dL (8.4-25.7); Bilirubin, Total 0.3 mg/dL (0.2-1.2); Calc. Creatinine Clearance 0 mL/min (70-130); Calcium 9.3 mg/dL (7.8-10.44); Carbon Dioxide 29 mmol/L (23-31); Chloride 100 mmol/L (98-107); Globulin 4.5 g/dL (2.4-3.5); Glucose 119 mg/dL (80-115); Potassium 4.8 mmol/L (3.5-5.1); Protein, Total 8.1 g/dL (5.8-8.1); Sodium 137 mmol/L (136-145)
[2021-01-03 16:34] LABS: Band 29 % (5-11); Eosinophils 5 % (0-10); Lymphocytes 8 % (21-51); MDiff Complete? YES; Metamyelocyte 3 % (0-0); Monocytes 6 % (0-10); Neutrophil 47 % (42-75); Reactive Lymphocytes 2 % (0-10)
[2021-01-03 16:54] LABS: Magnesium 1.6 mg/dL (1.6-2.6)
[2021-01-03 17:16] LABS: CKMB 1.2 ng/mL (0-6.6)
[2021-01-03] MEDS ORDERED: Aspirin Chewable 81 MG TAB ONE (18:09)
[2021-01-03] MEDS ORDERED: Magnesium 2 GM/50 ML BAG (IN WATER) ONE (19:00)
[2021-01-03] MEDS ORDERED: Nitroglycerin 0.4 MG TAB (25 Tab Bottle) SL PRN (19:51)
[2021-01-03] MEDS ORDERED: Zolpidem Tartrate 5 MG TAB PO PRN (19:53)
[2021-01-03] MEDS ORDERED: Ondansetron PF 4 MG/2 ML Vial IVP PRN (19:53)
[2021-01-03] MEDS ORDERED: HYDROcodone/Acetaminophen 5/325 mg Tablet PO PRN (19:53)
[2021-01-03] MEDS ORDERED: Morphine 2 MG/ML VIAL SLOW IVP PRN (19:54)
[2021-01-03] MEDS ORDERED: hydrALAZINE 20 MG/ML VIAL SLOW IVP PRN (19:54)
[2021-01-03] MEDS ORDERED: traMADol HCl 50 MG TAB PO PRN (19:54)
[2021-01-03] MEDS ORDERED: Lactated Ringer's 1,000 ML IV SCH (20:00)
[2021-01-03 20:50] LABS: Troponin I 0.089 ng/mL (< 0.028)
[2021-01-03] MEDS: Sodium Chloride 0.9% 1,000 ML IV SCH (21:50)
[2021-01-03 22:25] LABS: Bilirubin Negative (Negative); Blood, Urine 3+ (Negative); Clarity Turbid (Clear); Glucose, Urine (Dipstick) Normal (Negative); Ketone, Urine Negative (Negative); Leukocyte 500 Leu/uL (Negative); Nitrite Negative (Negative); Protein, Urine (Dipstick) 70 mg/dL (Neg-Trace); RBC/HPF Greater than 50 HPF (0-3); Specific Gravity, Urine 1.022 (1.002-1.036); Squamous Epithelial None Seen HPF (0-3); Urobilinogen Normal mg/dL (Less than 2); WBC/HPF Greater than 50 HPF (0-3); pH, Urine 5.5 (5.0-9.0)
[2021-01-03 22:30] LABS: Bacteria/HPF 1+ HPF (None Seen)
[2021-01-03] MEDS: Flecainide 50 MG TAB PO SCH (23:03)
[2021-01-03 23:41] LABS: Troponin I 0.091 ng/mL (< 0.028)
[2021-01-03 23:56] LABS: SARS-CoV-2 PCR by NAA Not Detected (NotDetected)
[2021-01-04 05:21] LABS: Hemoglobin 8.9 g/dL (14.0-18.0); Mean Corpuscular HGB CONC 32.5 g/dL (32.0-36.0); Mean Corpuscular Hemoglobin 28.8 pg (27.0-31.0); Mean Corpuscular Volume 88.8 fL (78.0-98.0); Mean Platelet Volume 6.8 fL (7.4-10.4); Platelet Count 318 thou/uL (130-400); RBC Distribution Width 12.8 % (11.5-14.5); White Blood Cell (WBC) Count 5.8 thou/uL (4.8-10.8)
[2021-01-04 05:40] LABS: Band 6 % (5-11); Eosinophils 7 % (0-10); Lymphocytes 12 % (21-51); MDiff Complete? YES; Monocytes 15 % (0-10); Neutrophil 60 % (42-75)
[2021-01-04] MEDS: Levothyroxine Sodium 100 MCG TAB PO SCH (05:52)
[2021-01-04 05:57] LABS: ALT (SGPT) Less than 7 U/L (8-55); AST (SGOT) 12 U/L (5-34); Albumin 3.3 g/dL (3.4-4.8); Alkaline Phosphatase 96 U/L (40-110); Anion Gap 11 mmol/L (10-20); BUN (Urea Nitrogen) 21 mg/dL (8.4-25.7); Bilirubin, Total 0.3 mg/dL (0.2-1.2); Calc. Creatinine Clearance 0 mL/min (70-130); Calcium 8.7 mg/dL (7.8-10.44); Carbon Dioxide 28 mmol/L (23-31); Cardiac Risk 4.3 (Less than 4.5); Chloride 103 mmol/L (98-107); Cholesterol 168 mg/dl (< 200 Desired); Globulin 3.7 g/dL (2.4-3.5); Glucose 107 mg/dL (80-115); HDL Cholesterol 39 mg/dL (>60 Neg Risk); LDL Cholesterol, Calculated 116 mg/dL; Magnesium 1.9 mg/dL (1.6-2.6); Potassium 4.6 mmol/L (3.5-5.1); Sodium 137 mmol/L (136-145); Triglycerides 66 mg/dL (Less than 150)
[2021-01-04 06:29] VITALS: BMI 26.5
[2021-01-04] MEDS: Flecainide 50 MG TAB PO SCH ×2 (11:02→20:08)
[2021-01-04] MEDS: Enoxaparin Sodium 40 MG/0.4 ML SYRINGE SC SCH (11:02)
[2021-01-04] MEDS: Spironolactone 25 MG TAB PO SCH (11:02)
[2021-01-04] MEDS: Sodium Chloride 0.9% 1,000 ML IV SCH (17:58)
[2021-01-04] MEDS ORDERED: Aspirin 81 mg Enteric Coated Tablet PO SCH (18:15)
[2021-01-04 18:56] LABS: Troponin I 0.053 ng/mL (< 0.028)
[2021-01-04] MEDS: Atenolol 25 MG TAB PO SCH (20:08)
[2021-01-04] MEDS: Atorvastatin Calcium 40 MG TAB PO SCH ×2 (20:08→22:00)
[2021-01-04] MEDS ORDERED: Tamsulosin HCl 0.4 MG CAP PO SCH (21:00)
[2021-01-05 01:19] LABS: Troponin I 0.054 ng/mL (< 0.028)
[2021-01-05] MEDS: Sodium Chloride 0.9% 1,000 ML IV SCH (05:50)
[2021-01-05] MEDS: Levothyroxine Sodium 100 MCG TAB PO SCH (05:50)
[2021-01-05 06:10] LABS: Troponin I 0.052 ng/mL (< 0.028)
[2021-01-05] MEDS: Enoxaparin Sodium 40 MG/0.4 ML SYRINGE SC SCH (08:54)
[2021-01-05] MEDS: Flecainide 50 MG TAB PO SCH (08:54)
[2021-01-05] MEDS: Spironolactone 25 MG TAB PO SCH (08:54)
[2021-01-05] MEDS: Atenolol 25 MG TAB PO SCH (08:54)
[2021-01-05] MEDS ORDERED: Iopamidol-370 76% 500 ML 1 ML ONE (08:56)
[2021-01-05] MEDS ORDERED: Aspirin 81 mg Enteric Coated Tablet PO SCH (09:00)
[2021-01-05 15:57] VITALS: BP 132/71; TEMP 98.3
== END 2021-01-05 18:10 | disposition home or self-care (01) | DRG 309 ==
LOC: ERS 15:21 → ERHOLD 18:44 → 2SE 01-04 09:24 → OBSVTOIN 01-04 18:14
PROVIDERS: ADMIT Internal Medicine; ATTEND Internal Medicine
PROC: 4B02XTZ Measurement of Cardiac Defibrillator, External Approach (ICD-10-PCS; principal; 2021-01-04)
DX: I47.1 Supraventricular tachycardia (principal); C20 Malignant neoplasm of rectum; C79.11 Secondary malignant neoplasm of bladder; N32.1 Vesicointestinal fistula; I50.22 Chronic systolic (congestive) heart failure; Z20.822 Contact with and (suspected) exposure to COVID-19; I48.92 Unspecified atrial flutter; I48.20 Chronic atrial fibrillation, unspecified; I25.10 Atherosclerotic heart disease of native coronary artery without angina pectoris; R31.9 Hematuria, unspecified; E89.0 Postprocedural hypothyroidism; I11.0 Hypertensive heart disease with heart failure; I71.4 Abdominal aortic aneurysm, without rupture; R82.71 Bacteriuria; Z95.810 Presence of automatic (implantable) cardiac defibrillator; Z79.890 Hormone replacement therapy; Z83.49 Family history of other endocrine, nutritional and metabolic diseases; Z93.2 Ileostomy status; Z79.899 Other long term (current) drug therapy; Z87.891 Personal history of nicotine dependence
CPT/HCPCS: 36415; 71045; 71275; 80053; 80061; 81003; 81015; 82553; 83690; 83735; 83880; 84443; 84484; 85007; 85025; 85027; 85379; 87635; 93005; 93306; 94760; 96365; 96366; 96372; G0378; J1650; J3475; Q9967; U0003; U0005

== ENCOUNTER 2021-01-16 07:14 | Outpatient (CLI) | payer MEDICARE ==
[2021-01-16] MEDS ORDERED: MD-Gastroview 120 ML BOT ONE (10:12)
== END 2021-01-16 07:15 | disposition home or self-care (01) ==
LOC: RAD 07:14
PROVIDERS: ATTEND Surgery
DX: C20 Malignant neoplasm of rectum (principal)
CPT/HCPCS: 74270; Q9963

== ENCOUNTER 2021-03-05 06:14 | Day surgery (SDC) | payer MEDICARE ==
[2021-03-04 11:09] VITALS: BMI 27.6
== END 2021-03-05 10:54 | disposition home or self-care (01) ==
LOC: CCL 06:14
PROVIDERS: ATTEND Internal Medicine Cardiovascular Disease
PROC: 4A023N7 Measurement of Cardiac Sampling and Pressure, Left Heart, Percutaneous Approach (ICD-10-PCS; principal; 2021-03-05)
PROC: B2111ZZ Fluoroscopy of Multiple Coronary Arteries using Low Osmolar Contrast (ICD-10-PCS; 2021-03-05)
DX: I71.2 Thoracic aortic aneurysm, without rupture (principal); I25.10 Atherosclerotic heart disease of native coronary artery without angina pectoris; E78.2 Mixed hyperlipidemia; I48.0 Paroxysmal atrial fibrillation; I11.0 Hypertensive heart disease with heart failure; I50.32 Chronic diastolic (congestive) heart failure; I27.20 Pulmonary hypertension, unspecified; G47.33 Obstructive sleep apnea (adult) (pediatric); E89.0 Postprocedural hypothyroidism; I49.5 Sick sinus syndrome; Z85.038 Personal history of other malignant neoplasm of large intestine; Z87.891 Personal history of nicotine dependence; Z79.899 Other long term (current) drug therapy; Z90.49 Acquired absence of other specified parts of digestive tract; Z95.0 Presence of cardiac pacemaker
CPT/HCPCS: 80061; 93458; 99152; J2001; J2250; J3010; Q9967

== ENCOUNTER 2021-06-22 07:58 | Day surgery (SDC) | payer MEDICARE ==
[2021-06-19 09:54] VITALS: BMI 28.8
[2021-06-22 09:08] LABS: #Eosinphils 0.1 thou/uL (0.0-0.7); #Lymphocytes 0.6 thou/uL (1.20-3.40); #Monocytes 0.6 thou/uL (0.11-0.59); #Neutrophils 2.9 thou/uL (1.40-6.50); %Basophils 0.6 % (0.0-1.0); %Eosinophils 3.3 % (0.0-10.0); %Lymphocytes 14.8 % (21.0-51.0); %Monocytes 14.3 % (0.0-10.0); %Neutrophils 67.1 % (42.0-75.0); Mean Corpuscular HGB CONC 33.1 g/dL (32.0-36.0); Mean Corpuscular Hemoglobin 29.5 pg (27.0-31.0); Mean Corpuscular Volume 89.2 fL (78.0-98.0); Platelet Count 196 thou/uL (130-400); Red Blood Cell (RBC) Count 4.06 mill/uL (4.70-6.10); White Blood Cell (WBC) Count 4.3 thou/uL (4.8-10.8)
[2021-06-22 09:23] LABS: Anion Gap 13 mmol/L (10-20); BUN (Urea Nitrogen) 25 mg/dL (8.4-25.7); Calc. Creatinine Clearance 89 mL/min (70-130); Calcium 9.1 mg/dL (7.8-10.44); Carbon Dioxide 26 mmol/L (23-31); Cardiac Risk 3.9 (Less than 4.5); Chloride 106 mmol/L (98-107); Cholesterol 204 mg/dl (< 200 Desired); Glucose 98 mg/dL (80-115); HDL Cholesterol 52 mg/dL (>60 Neg Risk); LDL Cholesterol, Calculated 141 mg/dL; Potassium 4.3 mmol/L (3.5-5.1); Sodium 141 mmol/L (136-145); Triglycerides 53 mg/dL (Less than 150)
[2021-06-22] MEDS ORDERED: Midazolam HCl 2 mg/2 ml Vial ONE (10:38)
[2021-06-22] MEDS ORDERED: Fentanyl 100 MCG/2 ML VIAL ONE (10:38)
[2021-06-22 11:37] LABS: Site PA; Site RA
[2021-06-22] MEDS ORDERED: Iopamidol 370 76% 100 ML VIAL ONE (13:25)
== END 2021-06-22 14:37 | disposition home or self-care (01) ==
LOC: CCL 07:58
PROVIDERS: ATTEND Internal Medicine Cardiovascular Disease
PROC: 4A023N8 Measurement of Cardiac Sampling and Pressure, Bilateral, Percutaneous Approach (ICD-10-PCS; principal; 2021-06-22)
DX: I27.20 Pulmonary hypertension, unspecified (principal); E78.00 Pure hypercholesterolemia, unspecified; I11.0 Hypertensive heart disease with heart failure; I50.32 Chronic diastolic (congestive) heart failure; I25.10 Atherosclerotic heart disease of native coronary artery without angina pectoris; E03.9 Hypothyroidism, unspecified; I48.0 Paroxysmal atrial fibrillation; I71.2 Thoracic aortic aneurysm, without rupture; E78.2 Mixed hyperlipidemia; G47.33 Obstructive sleep apnea (adult) (pediatric); C18.9 Malignant neoplasm of colon, unspecified; Z79.899 Other long term (current) drug therapy; Z95.5 Presence of coronary angioplasty implant and graft; Z87.891 Personal history of nicotine dependence
CPT/HCPCS: 36415; 80048; 80061; 82810; 85025; 93005; 93010; 93453; 93561; 99152; 99153; J2250; J3010; Q9967

== ENCOUNTER 2021-07-31 09:16 | Outpatient (CLI) | payer MEDICARE | END 2021-07-31 09:17 | disposition home or self-care (01) | LOC: CT 09:16 | PROVIDERS: ATTEND Internal Medicine Hematology & Oncology | DX: C20 Malignant neoplasm of rectum (principal); Z98.890 Other specified postprocedural states | CPT/HCPCS: 71260; 74177; 82565; Q9967 ==

== ENCOUNTER 2022-05-19 16:34 | Inpatient (IN) | payer MEDICARE, OTHER ==
[2022-05-19 17:23] LABS: Hemoglobin 11.9 g/dL (14.0-18.0); Mean Corpuscular HGB CONC 32.3 g/dL (32.0-36.0); Mean Corpuscular Hemoglobin 30.7 pg (27.0-31.0); Mean Corpuscular Volume 95.2 fL (78.0-98.0); Platelet Count 220 thou/uL (130-400); RBC Distribution Width 12.5 % (11.5-14.5); Red Blood Cell (RBC) Count 3.86 mill/uL (4.70-6.10); White Blood Cell (WBC) Count 6.5 thou/uL (4.8-10.8)
[2022-05-19 17:45] LABS: Band 3 % (5-11); Lymphocytes 13 % (21-51); MDiff Complete? YES; Monocytes 15 % (0-10); Neutrophil 67 % (42-75); Platelet Morphology Comment Appears Adequate; RBC Morphology Normal; Reactive Lymphocytes 1 % (0-10)
[2022-05-19 17:48] LABS: ALT (SGPT) 34 U/L (8-55); AST (SGOT) 24 U/L (5-34); Albumin 4.1 g/dL (3.4-4.8); Alkaline Phosphatase 95 U/L (40-110); Anion Gap 10 mmol/L (10-20); BUN (Urea Nitrogen) 35 mg/dL (8.4-25.7); Bilirubin, Total 1.2 mg/dL (0.2-1.2); Calc. Creatinine Clearance 0 mL/min (70-130); Carbon Dioxide 27 mmol/L (23-31); Chloride 106 mmol/L (98-107); Estimated GFR 33; Globulin 3.1 g/dL (2.4-3.5); Glucose 99 mg/dL (80-115); Potassium 5.4 mmol/L (3.5-5.1); Protein, Total 7.2 g/dL (5.8-8.1); Sodium 138 mmol/L (136-145)
[2022-05-20] MEDS ORDERED: Ondansetron ODT 4 MG TAB SL PRN (01:00)
[2022-05-20] MEDS ORDERED: Ondansetron PF 4 MG/2 ML Vial IVP PRN (01:00)
[2022-05-20] MEDS ORDERED: Acetaminophen 325 MG TAB PO PRN (01:00)
[2022-05-20 02:36] VITALS: BMI 31.2
[2022-05-20 04:39] LABS: Anion Gap 12 mmol/L (10-20); BUN (Urea Nitrogen) 30 mg/dL (8.4-25.7); Calc. Creatinine Clearance 54 mL/min (70-130); Calcium 8.8 mg/dL (7.8-10.44); Carbon Dioxide 25 mmol/L (23-31); Chloride 105 mmol/L (98-107); Estimated GFR 42; Glucose 96 mg/dL (80-115); Potassium 4.7 mmol/L (3.5-5.1); Sodium 137 mmol/L (136-145)
[2022-05-20 05:06] LABS: Eosinophils 5 % (0-10); Hemoglobin 11.1 g/dL (14.0-18.0); Lymphocytes 14 % (21-51); MDiff Complete? YES; Mean Corpuscular HGB CONC 31.9 g/dL (32.0-36.0); Mean Corpuscular Hemoglobin 30.5 pg (27.0-31.0); Mean Corpuscular Volume 95.6 fL (78.0-98.0); Mean Platelet Volume 7.6 fL (7.4-10.4); Metamyelocyte 1 % (0-0); Monocytes 18 % (0-10); Neutrophil 62 % (42-75); Platelet Count 199 thou/uL (130-400); Platelet Morphology Comment Appears Adequate; RBC Distribution Width 12.3 % (11.5-14.5); RBC Morphology Normal; Red Blood Cell (RBC) Count 3.65 mill/uL (4.70-6.10)
[2022-05-20] MEDS ORDERED: Heparin 5,000 UNITS/ML VIAL SC SCH (09:00)
[2022-05-20] MEDS ORDERED: Atenolol 25 MG TAB PO SCH (12:15)
[2022-05-20] MEDS ORDERED: Levothyroxine Sodium 100 MCG TAB PO SCH (18:00)
[2022-05-20] MEDS ORDERED: Spironolactone 25 MG TAB PO SCH (19:00)
[2022-05-20] MEDS: Tamsulosin HCl 0.4 MG CAP PO SCH (20:08)
[2022-05-20] MEDS: Atenolol 25 MG TAB PO SCH (20:08)
[2022-05-20] MEDS: Flecainide 50 MG TAB PO SCH (20:08)
[2022-05-21 04:55] LABS: Anion Gap 12 mmol/L (10-20); BUN (Urea Nitrogen) 34 mg/dL (8.4-25.7); Calc. Creatinine Clearance 51 mL/min (70-130); Calcium 8.7 mg/dL (7.8-10.44); Carbon Dioxide 25 mmol/L (23-31); Chloride 103 mmol/L (98-107); Estimated GFR 39; Glucose 91 mg/dL (80-115); Potassium 4.8 mmol/L (3.5-5.1); Sodium 135 mmol/L (136-145)
[2022-05-21 04:56] LABS: Eosinophils 4 % (0-10); Hemoglobin 10.6 g/dL (14.0-18.0); Lymphocytes 15 % (21-51); MDiff Complete? YES; Mean Corpuscular HGB CONC 33.2 g/dL (32.0-36.0); Mean Corpuscular Hemoglobin 31.7 pg (27.0-31.0); Mean Corpuscular Volume 95.6 fL (78.0-98.0); Mean Platelet Volume 7.6 fL (7.4-10.4); Monocytes 14 % (0-10); Neutrophil 67 % (42-75); Platelet Count 185 thou/uL (130-400); RBC Distribution Width 12.2 % (11.5-14.5); Red Blood Cell (RBC) Count 3.35 mill/uL (4.70-6.10); White Blood Cell (WBC) Count 4.9 thou/uL (4.8-10.8)
[2022-05-21] MEDS: Levothyroxine Sodium 100 MCG TAB PO SCH (06:02)
[2022-05-21] MEDS: Atenolol 25 MG TAB PO SCH ×2 (08:50→20:30)
[2022-05-21] MEDS: Spironolactone 25 MG TAB PO SCH (08:51)
[2022-05-21] MEDS: Flecainide 50 MG TAB PO SCH ×2 (08:51→20:30)
[2022-05-21] MEDS ORDERED: Fentanyl 100 MCG/2 ML VIAL ONE (11:59)
[2022-05-21] MEDS ORDERED: CEFAZOLIN 2 GM VIAL ONE (12:08)
[2022-05-21] MEDS ORDERED: Sodium Chloride 0.9% 100 ML ONE (12:08)
[2022-05-21] MEDS ORDERED: Dexamethasone 20 MG/5 ML VIAL ONE (12:15)
[2022-05-21] MEDS ORDERED: PROPOFOL 200 MG/20 ML VIAL ONE (12:15)
[2022-05-21] MEDS ORDERED: Ondansetron PF 4 MG/2 ML Vial ONE (12:15)
[2022-05-21] MEDS ORDERED: Promethazine HCl 25 MG/ML VIAL IM PRN (13:14)
[2022-05-21] MEDS ORDERED: Ondansetron HCl/PF 4 MG/2 ML Vial IVP PRN (13:14)
[2022-05-21] MEDS ORDERED: Morphine Sulfate 2 MG/ML SYRINGE SLOW IVP PRN (13:14)
[2022-05-21] MEDS ORDERED: Promethazine HCl 25 MG/ML VIAL IVPB PRN (13:14)
[2022-05-21] MEDS ORDERED: HYDROmorphone 2 MG/ML VIAL SLOW IVP PRN (13:14)
[2022-05-21] MEDS ORDERED: Ondansetron PF 4 MG/2 ML Vial IVP PRN (16:22)
[2022-05-21] MEDS: Acetaminophen 325 MG TAB PO PRN ×2 (16:39→22:12)
[2022-05-21] MEDS: Tamsulosin HCl 0.4 MG CAP PO SCH (20:30)
[2022-05-22 05:07] LABS: #Lymphocytes 0.6 thou/uL (1.20-3.40); #Neutrophils 5.7 thou/uL (1.40-6.50); %Eosinophils 0.1 % (0.0-10.0); %Lymphocytes 8.1 % (21.0-51.0); %Monocytes 13.7 % (0.0-10.0); %Neutrophils 78.2 % (42.0-75.0); Hemoglobin 11.5 g/dL (14.0-18.0); Mean Corpuscular HGB CONC 31.9 g/dL (32.0-36.0); Mean Corpuscular Hemoglobin 30.7 pg (27.0-31.0); Mean Corpuscular Volume 96.3 fL (78.0-98.0); Mean Platelet Volume 7.6 fL (7.4-10.4); Platelet Count 224 thou/uL (130-400); RBC Distribution Width 12.2 % (11.5-14.5); Red Blood Cell (RBC) Count 3.74 mill/uL (4.70-6.10); White Blood Cell (WBC) Count 7.3 thou/uL (4.8-10.8)
[2022-05-22] MEDS: Levothyroxine Sodium 100 MCG TAB PO SCH (05:15)
[2022-05-22 05:22] LABS: Anion Gap 13 mmol/L (10-20); BUN (Urea Nitrogen) 30 mg/dL (8.4-25.7); Calc. Creatinine Clearance 54 mL/min (70-130); Carbon Dioxide 25 mmol/L (23-31); Chloride 104 mmol/L (98-107); Estimated GFR 42; Glucose 243 mg/dL (80-115); Potassium 4.7 mmol/L (3.5-5.1); Sodium 137 mmol/L (136-145)
[2022-05-22] MEDS: Acetaminophen 325 MG TAB PO PRN ×2 (10:28→20:19)
[2022-05-22] MEDS: Atenolol 25 MG TAB PO SCH ×2 (10:29→20:18)
[2022-05-22] MEDS: Flecainide 50 MG TAB PO SCH ×2 (10:29→20:18)
[2022-05-22] MEDS: Spironolactone 25 MG TAB PO SCH (10:30)
[2022-05-22] MEDS: Tamsulosin HCl 0.4 MG CAP PO SCH (20:18)
[2022-05-23] MEDS: Levothyroxine Sodium 100 MCG TAB PO SCH (05:03)
[2022-05-23 05:40] LABS: Anion Gap 12 mmol/L (10-20); BUN (Urea Nitrogen) 39 mg/dL (8.4-25.7); Calc. Creatinine Clearance 51 mL/min (70-130); Calcium 9.1 mg/dL (7.8-10.44); Carbon Dioxide 26 mmol/L (23-31); Chloride 105 mmol/L (98-107); Estimated GFR 39; Glucose 96 mg/dL (80-115); Potassium 4.4 mmol/L (3.5-5.1); Sodium 139 mmol/L (136-145)
[2022-05-23] MEDS: Spironolactone 25 MG TAB PO SCH (10:14)
[2022-05-23] MEDS: Flecainide 50 MG TAB PO SCH (10:14)
[2022-05-23] MEDS: Atenolol 25 MG TAB PO SCH (10:14)
[2022-05-23] MEDS ORDERED: Sodium Chloride 0.9% 500 ML IV SCH (11:15)
[2022-05-23 16:47] VITALS: BP 141/82; TEMP 97.8
== END 2022-05-23 16:48 | disposition home or self-care (01) | DRG 660 ==
LOC: ERS 16:34 → 2NO 05-20 00:50
PROVIDERS: ADMIT Internal Medicine; ATTEND Internal Medicine
PROC: 0TBB8ZX Excision of Bladder, Via Natural or Artificial Opening Endoscopic, Diagnostic (ICD-10-PCS; principal; 2022-05-21)
PROC: 0T768DZ Dilation of Right Ureter with Intraluminal Device, Via Natural or Artificial Opening Endoscopic (ICD-10-PCS; 2022-05-21)
PROC: 0TB68ZZ Excision of Right Ureter, Via Natural or Artificial Opening Endoscopic (ICD-10-PCS; 2022-05-21)
PROC: BT1D1ZZ Fluoroscopy of Right Kidney, Ureter and Bladder using Low Osmolar Contrast (ICD-10-PCS; 2022-05-21)
DX: N13.1 Hydronephrosis with ureteral stricture, not elsewhere classified (principal); I13.0 Hypertensive heart and chronic kidney disease with heart failure and stage 1 through stage 4 chronic kidney disease, or unspecified chronic kidney disease; I48.92 Unspecified atrial flutter; I50.32 Chronic diastolic (congestive) heart failure; Z20.822 Contact with and (suspected) exposure to COVID-19; N17.9 Acute kidney failure, unspecified; G47.33 Obstructive sleep apnea (adult) (pediatric); I48.0 Paroxysmal atrial fibrillation; I25.10 Atherosclerotic heart disease of native coronary artery without angina pectoris; I27.20 Pulmonary hypertension, unspecified; E87.5 Hyperkalemia; E89.0 Postprocedural hypothyroidism; I71.40 Abdominal aortic aneurysm, without rupture, unspecified; E87.6 Hypokalemia; D63.1 Anemia in chronic kidney disease; N18.30 Chronic kidney disease, stage 3 unspecified; Z85.038 Personal history of other malignant neoplasm of large intestine; Z92.3 Personal history of irradiation; Z92.21 Personal history of antineoplastic chemotherapy; Z99.89 Dependence on other enabling machines and devices; Z86.73 Personal history of transient ischemic attack (TIA), and cerebral infarction without residual deficits; Z90.49 Acquired absence of other specified parts of digestive tract; Z79.890 Hormone replacement therapy; Z95.810 Presence of automatic (implantable) cardiac defibrillator; Z87.891 Personal history of nicotine dependence; Z90.89 Acquired absence of other organs; Z79.899 Other long term (current) drug therapy
CPT/HCPCS: 36415; 71045; 74176; 74420; 80048; 80053; 83880; 83970; 84443; 84484; 85025; 85379; 88307; 88341; 88342; 93005; 93306; 94760; J0690; J1100; J2405; J2704; J3010; J3490; J7030; U0003; U0005

== ENCOUNTER 2022-08-21 22:13 | Emergency (ER) | payer MEDICARE, OTHER ==
[2022-08-21 23:03] LABS: Hemoglobin 10.4 g/dL (14.0-18.0); Mean Corpuscular HGB CONC 32.8 g/dL (32.0-36.0); Mean Corpuscular Hemoglobin 30.4 pg (27.0-31.0); Mean Corpuscular Volume 92.6 fl (78.0-98.0); Mean Platelet Volume 6.9 fL (7.4-10.4); Platelet Count 207 10x3/uL (130-400); RBC Distribution Width 12.8 % (11.5-14.5); Red Blood Cell (RBC) Count 3.44 mill/uL (4.70-6.10); White Blood Cell (WBC) Count 5.7 10x3/uL (4.8-10.8)
[2022-08-21 23:18] LABS: ALT (SGPT) 8 U/L (8-55); AST (SGOT) 13 U/L (5-34); Albumin 3.7 g/dL (3.4-4.8); Alkaline Phosphatase 63 U/L (40-110); Anion Gap 11 mmol/L (10-20); BUN (Urea Nitrogen) 26 mg/dL (8.4-25.7); Bilirubin, Total 0.4 mg/dL (0.2-1.2); Calc. Creatinine Clearance 0 mL/min (70-130); Calcium 8.8 mg/dL (7.8-10.44); Carbon Dioxide 27 mmol/L (23-31); Chloride 107 mmol/L (98-107); Estimated GFR 79; Globulin 2.8 g/dL (2.4-3.5); Glucose 125 mg/dL (83-110); Lipase 29 U/L (8-78); Potassium 3.9 mmol/L (3.5-5.1); Protein, Total 6.5 g/dL (5.8-8.1); Sodium 141 mmol/L (136-145)
[2022-08-21 23:46] LABS: Band 2 % (5-11); Hypochromia SLIGHT = 6-15 cells (100X) (0-5/hpf); Lymphocytes 6 % (21-51); MDiff Complete? YES; Monocytes 15 % (0-10); Neutrophil 77 % (42-75); Platelet Morphology Comment Appears Adequate
== END 2022-08-22 | disposition home or self-care (01) ==
LOC: ERS 22:13
DX: K94.00 Colostomy complication, unspecified (principal); I10 Essential (primary) hypertension; Z87.891 Personal history of nicotine dependence
CPT/HCPCS: 36415; 80053; 83605; 83690; 85025; 99283

== ENCOUNTER 2024-01-10 16:13 | Inpatient (IN) | payer MEDICARE ==
[2024-01-10 19:28] LABS: Hematocrit 31.3 % (42.0-52.0); Hemoglobin 9.7 g/dL (14.0-18.0); Mean Corpuscular Hemoglobin 27.4 pg (27.0-31.0); Mean Corpuscular Volume 88.4 fL (78.0-98.0); Mean Platelet Volume 9.5 fL (7.4-10.4); Platelet Count 317 10x3/uL (130-400); RBC Distribution Width 16.2 % (11.5-14.5); Red Blood Cell (RBC) Count 3.54 mill/uL (4.70-6.10)
[2024-01-10 19:31] LABS: Influenza A by NAA Not Detected (NotDetected); Influenza B by NAA Not Detected (NotDetected); SARS-CoV-2 NAA Rapid Test Not Detected (NotDetected)
[2024-01-10 19:38] LABS: ALT (SGPT) 17 U/L (8-55); AST (SGOT) 19 U/L (5-34); Albumin 2.9 g/dL (3.4-4.8); Alkaline Phosphatase 257 U/L (40-110); Anion Gap 18 mmol/L (10-20); BUN (Urea Nitrogen) 33 mg/dL (8.4-25.7); Bilirubin, Total 1.1 mg/dL (0.2-1.2); Calc. Creatinine Clearance 0 mL/min (70-130); Carbon Dioxide 18 mmol/L (23-31); Chloride 100 mmol/L (98-107); Estimated GFR 44; Globulin 4.7 g/dL (2.4-3.5); Glucose 108 mg/dL (83-110); Lipase 19 U/L (8-78); Magnesium 1.6 mg/dL (1.6-2.6); Potassium 4.9 mmol/L (3.5-5.1); Protein, Total 7.6 g/dL (5.8-8.1); Sodium 131 mmol/L (136-145)
[2024-01-10 19:45] LABS: Troponin I 0.031 ng/mL (< 0.028)
[2024-01-10 19:53] LABS: Band 10 % (5-11); Large Platelets 5.1 % (0-5); Lymphocytes 3 % (21-51); Monocytes 14 % (0-10); Neutrophil 72 % (42-75); Platelet Adequacy Comment Platelets Normal; Polychromasia SLIGHT = 2-3 cells HPF (0-2)
[2024-01-10 19:55] LABS: INR-International Normal Ratio 1.3; PTT 32.3 sec (22.9-36.1); Prothrombin Time 16.1 sec (12.0-14.7)
[2024-01-10 20:32] LABS: Bilirubin Negative (Negative); Blood, Urine 2+ (Negative); CAUTI Indications for Culture Immunosuppressed; Clarity Extra Turbid (Clear); Glucose, Urine (Dipstick) Normal (Negative); Ketone, Urine Negative (Negative); Leukocyte 500 Leu/uL (Negative); Nitrite 2+ (Negative); Protein, Urine (Dipstick) 50 mg/dL (Neg-Trace); Specific Gravity, Urine 1.018 (1.002-1.036); Urobilinogen Normal mg/dL (Less than 2); WBC/HPF Greater than 50 HPF (0-3); pH, Urine 5.5 (5.0-9.0)
[2024-01-10 20:33] LABS: Bacteria/HPF 1+ HPF (None Seen); Urine Culture Reflex Yes Yes
[2024-01-10] MEDS ORDERED: Vancomycin 1 GM/200 ML (FROZEN) BAG ONE (21:04)
[2024-01-10] MEDS ORDERED: Piperacillin/Tazobactam 4.5 GM VIAL ONE (21:04)
[2024-01-10] MEDS ORDERED: Sodium Chloride 0.9% 100 ML ONE (21:04)
[2024-01-10] MEDS ORDERED: Labetalol HCl 100 MG/20 ML VIAL SLOW IVP PRN (22:38)
[2024-01-10 23:56] VITALS: BMI 32.5
[2024-01-10] MEDS: Tamsulosin HCl 0.4 MG CAP PO SCH (23:57)
[2024-01-10] MEDS: Atenolol 25 MG TAB PO SCH (23:58)
[2024-01-11] MEDS: Sodium Chloride 0.9% 500 ML IV SCH (00:05)
[2024-01-11] MEDS: Piperacillin/Tazobactam 3.375 GM in Sodium Chloride 0.9% 100 ML IVPB SCH (01:21)
[2024-01-11] MEDS: Acetaminophen 325 MG TAB PO PRN (03:14)
[2024-01-11 04:04] LABS: #Basophils Less than 0.03 10x3/uL (0.0-0.2); #Eosinphils Less than 0.03 10x3/uL (0.0-0.7); %Basophils 0.2 % (0.0-1.0); %Eosinophils 0.2 % (0.0-10.0); %Lymphocytes 8.1 % (21.0-51.0); %Monocytes 18.6 % (0.0-10.0); %Neutrophils 71.8 % (42.0-75.0); Hematocrit 30.8 % (42.0-52.0); Hemoglobin 9.8 g/dL (14.0-18.0); Mean Corpuscular HGB CONC 31.8 g/dL (32.0-36.0); Mean Corpuscular Volume 84.8 fL (78.0-98.0); Mean Platelet Volume 9.3 fL (7.4-10.4); Platelet Count 317 10x3/uL (130-400); RBC Distribution Width 16.3 % (11.5-14.5); Red Blood Cell (RBC) Count 3.63 mill/uL (4.70-6.10)
[2024-01-11 04:24] LABS: ALT (SGPT) 16 U/L (8-55); AST (SGOT) 17 U/L (5-34); Albumin 2.7 g/dL (3.4-4.8); Alkaline Phosphatase 243 U/L (40-110); Anion Gap 17 mmol/L (10-20); BUN (Urea Nitrogen) 32 mg/dL (8.4-25.7); Bilirubin, Total 1.4 mg/dL (0.2-1.2); Calc. Creatinine Clearance 54 mL/min (70-130); Calcium 8.8 mg/dL (7.8-10.44); Carbon Dioxide 20 mmol/L (23-31); Chloride 100 mmol/L (98-107); Estimated GFR 41; Globulin 4.5 g/dL (2.4-3.5); Glucose 116 mg/dL (83-110); Potassium 4.7 mmol/L (3.5-5.1); Protein, Total 7.2 g/dL (5.8-8.1); Sodium 132 mmol/L (136-145)
[2024-01-11 04:29] LABS: Troponin I 0.041 ng/mL (< 0.028)
[2024-01-11] MEDS: Levothyroxine Sodium 100 MCG TAB PO SCH (06:51)
[2024-01-11 07:33] LABS: Creatinine, Urine 104.71 mg/dL (63-166); Urea Nitrogen, Random Urine Greater than 100 mg/dl
[2024-01-11] MEDS: Flecainide 50 MG TAB PO SCH (08:31)
[2024-01-11] MEDS: Atenolol 25 MG TAB PO SCH (08:31)
[2024-01-11] MEDS: Sildenafil Citrate 20 MG TAB PO SCH (08:32)
[2024-01-11] MEDS ORDERED: Enoxaparin 40 MG (0.4 mL) SYRINGE SC SCH (09:00)
[2024-01-11 14:42] VITALS: BMI 32.5
[2024-01-12 04:59] LABS: #Basophils Less than 0.03 10x3/uL (0.0-0.2); %Basophils 0.1 % (0.0-1.0); %Eosinophils 1.2 % (0.0-10.0); %Lymphocytes 6.9 % (21.0-51.0); %Monocytes 17.8 % (0.0-10.0); %Neutrophils 73.3 % (42.0-75.0); Hematocrit 26.7 % (42.0-52.0); Hemoglobin 8.4 g/dL (14.0-18.0); Mean Corpuscular HGB CONC 31.5 g/dL (32.0-36.0); Mean Corpuscular Hemoglobin 27.5 pg (27.0-31.0); Mean Corpuscular Volume 87.5 fL (78.0-98.0); Mean Platelet Volume 9.2 fL (7.4-10.4); Platelet Count 262 10x3/uL (130-400); RBC Distribution Width 16.3 % (11.5-14.5); Red Blood Cell (RBC) Count 3.05 mill/uL (4.70-6.10)
[2024-01-12 05:14] LABS: ALT (SGPT) 12 U/L (8-55); AST (SGOT) 15 U/L (5-34); Albumin 2.4 g/dL (3.4-4.8); Alkaline Phosphatase 219 U/L (40-110); Anion Gap 14 mmol/L (10-20); BUN (Urea Nitrogen) 31 mg/dL (8.4-25.7); Calc. Creatinine Clearance 57 mL/min (70-130); Calcium 8.4 mg/dL (7.8-10.44); Carbon Dioxide 23 mmol/L (23-31); Chloride 103 mmol/L (98-107); Estimated GFR 44; Glucose 112 mg/dL (83-110); Potassium 4.6 mmol/L (3.5-5.1); Protein, Total 6.4 g/dL (5.8-8.1); Sodium 135 mmol/L (136-145)
[2024-01-13 04:37] LABS: #Basophils Less than 0.03 10x3/uL (0.0-0.2); %Basophils 0.2 % (0.0-1.0); %Lymphocytes 8.7 % (21.0-51.0); %Monocytes 14.8 % (0.0-10.0); %Neutrophils 71.7 % (42.0-75.0); Hematocrit 28.4 % (42.0-52.0); Hemoglobin 8.8 g/dL (14.0-18.0); Mean Corpuscular Hemoglobin 27.1 pg (27.0-31.0); Mean Corpuscular Volume 87.4 fL (78.0-98.0); Mean Platelet Volume 9.7 fL (7.4-10.4); Platelet Count 283 10x3/uL (130-400); RBC Distribution Width 16.3 % (11.5-14.5); Red Blood Cell (RBC) Count 3.25 mill/uL (4.70-6.10)
[2024-01-13 05:08] LABS: Anion Gap 13 mmol/L (10-20); BUN (Urea Nitrogen) 33 mg/dL (8.4-25.7); Calc. Creatinine Clearance 63 mL/min (70-130); Carbon Dioxide 21 mmol/L (23-31); Chloride 106 mmol/L (98-107); Potassium 4.4 mmol/L (3.5-5.1); Sodium 136 mmol/L (136-145)
[2024-01-13 05:09] LABS: ALT (SGPT) 9 U/L (8-55); AST (SGOT) 14 U/L (5-34); Albumin 2.3 g/dL (3.4-4.8); Alkaline Phosphatase 190 U/L (40-110); Bilirubin, Total 0.7 mg/dL (0.2-1.2); Calcium 8.6 mg/dL (7.8-10.44); Estimated GFR 49; Globulin 4.1 g/dL (2.4-3.5); Glucose 92 mg/dL (83-110); Protein, Total 6.4 g/dL (5.8-8.1)
[2024-01-13] MEDS ORDERED: Iopamidol 15 ML ONE (16:45)
[2024-01-13] MEDS ORDERED: PROPOFOL 20 ML ONE (16:59)
[2024-01-13] MEDS ORDERED: fentaNYL PF 100 MCG/2 ML SYRINGE ONE (16:59)
[2024-01-13] MEDS ORDERED: Vasopressin 20 UNITS/ML VIAL ONE (17:15)
[2024-01-13] MEDS ORDERED: ePHEDrine Sulfate 50 MG/10 ML VIAL ONE (17:16)
[2024-01-13] MEDS ORDERED: Lidocaine 1% PF 5 ML VIAL ONE (17:20)
[2024-01-13] MEDS ORDERED: Ondansetron PF 4 MG/2 ML Vial ONE (17:36)
[2024-01-13] MEDS ORDERED: Piperacillin/Tazobactam 3.375 GM VIAL ONE (17:48)
[2024-01-13] MEDS ORDERED: Sodium Chloride 0.9% 100 ML ONE (17:49)
[2024-01-13] MEDS ORDERED: Promethazine HCl 25 MG/ML VIAL IM PRN (18:16)
[2024-01-13] MEDS ORDERED: Morphine Sulfate 2 MG/ML SYRINGE SLOW IVP PRN (18:16)
[2024-01-13] MEDS ORDERED: Ondansetron HCl/PF 4 MG/2 ML Vial IVP PRN (18:16)
[2024-01-14 00:08] VITALS: BP 160/78; TEMP 97.7
== END 2024-01-14 00:09 | disposition left against medical advice (07) | DRG 660 ==
LOC: ERS 16:13 → 2NO 21:23 → OBSVTOIN 01-11 09:28 → MSONC 01-13 22:58 → 2NO 01-13 23:16
PROVIDERS: ADMIT Student in an Organized Health Care Education/Training Program; ATTEND Student in an Organized Health Care Education/Training Program
PROC: 0TP98DZ Removal of Intraluminal Device from Ureter, Via Natural or Artificial Opening Endoscopic (ICD-10-PCS; principal; 2024-01-13)
PROC: 0T768DZ Dilation of Right Ureter with Intraluminal Device, Via Natural or Artificial Opening Endoscopic (ICD-10-PCS; 2024-01-13)
DX: N13.6 Pyonephrosis (principal); I24.89 Other forms of acute ischemic heart disease; I50.32 Chronic diastolic (congestive) heart failure; I11.0 Hypertensive heart disease with heart failure; G47.33 Obstructive sleep apnea (adult) (pediatric); D64.9 Anemia, unspecified; E89.0 Postprocedural hypothyroidism; I48.0 Paroxysmal atrial fibrillation; N17.9 Acute kidney failure, unspecified; R91.8 Other nonspecific abnormal finding of lung field; I27.20 Pulmonary hypertension, unspecified; B96.20 Unspecified Escherichia coli [E. coli] as the cause of diseases classified elsewhere; Z86.73 Personal history of transient ischemic attack (TIA), and cerebral infarction without residual deficits; Z90.49 Acquired absence of other specified parts of digestive tract; Z85.038 Personal history of other malignant neoplasm of large intestine; Z92.21 Personal history of antineoplastic chemotherapy; Z95.0 Presence of cardiac pacemaker; Z79.890 Hormone replacement therapy; Z79.899 Other long term (current) drug therapy; Z87.891 Personal history of nicotine dependence; Z99.89 Dependence on other enabling machines and devices; Z92.3 Personal history of irradiation
CPT/HCPCS: 36415; 71045; 74176; 74420; 80053; 80061; 81001; 82570; 83605; 83690; 83735; 83880; 84145; 84443; 84484; 84540; 85025; 85610; 85730; 87040; 87077; 87086; 87186; 93005; 96376; C2617; G0378; J2405; J2543; J2704; J3370-JW; J3490; J7050; Q9967